=== PATIENT | female | born 1965 | race Caucasian/White ===

== ENCOUNTER → 2020-07-30 14:49 | Outpatient (BNVA) | payer BC, SELFPAY | PROVIDERS: Family Provider Family Medicine; Visit Provider Specialist | DX: G43.019 Migraine without aura, intractable, without status migrainosus (principal) | CPT/HCPCS: 99212 ==

== ENCOUNTER 2020-09-21 13:34 | Outpatient (CLI) | payer BC, SELFPAY ==
--- NOTE | 2020-09-21 13:40 | MM_ITS ---
WS: [id number] BILATERAL SCREENING DIGITAL MAMMOGRAM WITH CAD HISTORY: SCREENING COMPARISON: 08/09/2019 and 08/10/2018 Bilateral CC and MLO views submitted. Computer aided detection analyzed. Breast composition: There are scattered areas of fibroglandular density. No suspicious masses, microc alcifications or architectural distortion. MM/[place] [id number] IMPRESSION: BI-RADS: 1-Negative FOLLOW UP: 1 Year Follow-up
== END 2020-09-21 13:35 | disposition home or self-care (01) ==
LOC: RADSHAW 13:39
PROVIDERS: PCP Nurse Practitioner Family; Visit Provider Nurse Practitioner Family
DX: Z12.31 Encounter for screening mammogram for malignant neoplasm of breast (principal)
CPT/HCPCS: 77067

== ENCOUNTER 2020-12-14 19:09 | Emergency (ER) | payer OTHER, SELFPAY ==
--- NOTE | 2020-12-14 19:10 | ECG_ITS ---
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 Measurements Intervals [place] Rate: 73 P: 61 GA: 160 QRS: -32 QRSD: 96 T: 33 QT: 390 QTc: 430 Interpretive Statements SINUS RHYTHM WITH SINUS ARRHYTHMIA MARKED LEFT AXIS DEVIATION [QRS AXIS < -30] LOW QRS VOLTAGE IN PRECORDIAL LEADS [QRS DEFLECTION < 1.0 mV IN CHEST LEADS] POSSIBLE ANTERIOR MYOCARDIAL INFARCTION [30 ms Q WAVE IN V3/V4, OR R < 0.2 mV IN V4], PROBABLY OLD Compared to ECG 12/10/2018 17:20:37 Left-axis deviation now present Myocardial infarct finding still present Electronically Signed On 12-15-2020 19:19:53 SHOE STITCHER ODD by Qasim Yan M.D. [email or web address] Ltd[facility] Healthcare[facility].[email or web address]/NU/[id number] whiting
--- NOTE | 2020-12-14 19:10 | XRR_ITS ---
PROCEDURE INFORMATION: Exam: XR Chest, 1 View Exam date and time: 12/14/2020 7:35 PM Age: 55 years old Clinical indication: Chest pain; Additional info: Cp TECHNIQUE: Imaging protocol: XR of the chest Views: 1 view. COMPARISON: CR Chest 1 [place] [id number] 12/10/2018 2:55 PM FINDINGS: Lungs: Unremarkable. No consolidation. Pleural spaces: Unremarkable. No pleural effusion. No pneumothorax. Heart/Mediastinum: Unremarkable. No cardiomegaly. Bones/joints: Unremarkable. XR/XR chest 1V portable [id number] IMPRESSION: 1. No acute findings. 2. No change from prior.
[2020-12-14 19:18] VITALS: BP 144/84; PULSE 76; RESP 16; TEMP 36.8; O2SAT 96; BMI 50.8
[2020-12-14 21:17] VITALS: BP 124/78
== END 2020-12-14 21:14 | disposition left against medical advice (07) ==
PROVIDERS: PCP Nurse Practitioner Family
DX: Z53.21 Procedure and treatment not carried out due to patient leaving prior to being seen by health care provider (principal)
CPT/HCPCS: 71045; 93005; 99283

== ENCOUNTER → 2021-07-31 14:12 | Outpatient (BNVA) | payer OTHER, SELFPAY | PROVIDERS: PCP Nurse Practitioner Family; Visit Provider Specialist | DX: G43.019 Migraine without aura, intractable, without status migrainosus (principal) | CPT/HCPCS: 99212 ==

== ENCOUNTER 2021-12-11 00:56 | Emergency (ER) | payer OTHER, SELFPAY ==
[2021-12-11 01:01] VITALS: BP 147/82; PULSE 80; RESP 20; TEMP 36.7; O2SAT 94; BMI 48.2
[2021-12-11 04:10] LABS: Basophils % 0.1 %; Eosinophils # 0.2 10^3/uL (0.0-0.8); Eosinophils % 3.1 %; Hematocrit 39.8 % (37.0-47.0); Lymphocytes # 1.7 10^3/uL (0.8-4.8); Lymphocytes % 24.1 %; Mean Corpuscular HGB Conc 32.7 g/dL (30.0-36.0); Mean Corpuscular Hemoglobin 31.7 pg (28.0-34.0); Mean Corpuscular Volume 97.1 fl (81-99); Mean Platelet Volume 11.6 fL (7.4-10.4); Monocytes # 0.7 10^3/uL (0.2-0.9); Monocytes % 10.2 %; Neutrophils % 62.1 %; Nucleated Red Blood Cells % 0 %; Platelet Count 184 10^3/cmm (130-400); Red Cell Distribution Width 12.2 % (12.1-15.1); White Blood Count 7.1 10^3/uL (4.0-10.0)
[2021-12-11] MEDS: ondansetron 4 MG Tablet PO (04:18)
[2021-12-11 04:33] LABS: Alanine Aminotransferase 33 U/L (0-33); Albumin Level 4.1 g/dL (3.5-5.2); Alkaline Phosphatase 49 IU/L (35-105); Anion Gap 18.4 (5-19); Aspartate Amino Transferase 32 U/L (0-32); Blood Urea Nitrogen 13 mg/dL (6-20); Calcium 9.5 mg/dL (8.5-10.5); Carbon Dioxide 20 mmol/L (22-29); Chloride 107 mmol/L (98-107); Globulin 2.1 g/dL (1.3-4.6); Glomerular Filtration Rate 166.3 mL/min (90-130); Glucose 142 mg/dL (65-115); Lipase 14 U/L (13-60); Osmolality Calculated 297 mOsm/kg (285-295); Potassium 3.4 mmol/L (3.5-5.1); Sodium 142 mmol/L (136-145); Total Bilirubin 0.6 mg/dL (0.15-1.2); Total Protein 6.2 g/dL (6.6-8.7)
--- NOTE | 2021-12-11 06:22 | CT_ITS ---
WS: [id number] CT ABDOMEN AND PELVIS WITH CONTRAST HISTORY: LEFT lower quadrant pain, UTI nausea and vomiting. TECHNIQUE: Imaging performed of the abdomen and pelvis with IV contrast. Single phase imaging of the abdomen. Coronal and sagittal reformats are submitted. All CT scans at [facility] use at [address] one of these dose optimization techniques: automated exposure control; mA and/or kV adjustment per patient size (includes targeted exams where dose is matched to clinical indication); or iterative re construction. IV CONTRAST: Visipaque 320; 95 mL IV. Oral contrast: No DLP: 1875.21 mGy.cm COMPARISON: 04/25/2016 Lower thorax: At the lung bases there are peripheral bilateral opacifications which are probably due to patient's Covid 19 diagnosis. No mass. Mild enlargement of the heart. Small hiatal hernia. Liver/biliary system: Liver is moderately enlarged. Liver extends over length of at least 19.5 cm wit h low attenuation from hepatic steatosis. Normal bile ducts. Portal vein is patent. Gallbladder: Normal. No gallstones or wall thickening. No pericholecystic fluid. Pancreas: Mild atrophy of the pancreas. No mass or evidence for acute pancreatitis. Spleen: Normal size spleen. No mass or infarct. Adrenal glands: Normal. Right kidney: Normal. Left kidney: Normal. Aorta: Mild atherosclerosis with no aneurysm. Lymphadenopathy: None. Free fluid: None. GI tract: Nondistended stomach. No small bowel obstruction or enteritis. The appendix is normal and c ontains a small appendicolith. No evidence for appendicitis. Extensive diverticulosis throughout the colon. In the descending and sigmoid colon there is moderate to severe pericolonic inflammation with narrowing of the lumen. Several adjacent diverticula. No free air is identified. There is no abscess or adjacent free fluid. Segment of inflammation extends over a length of 9 cm. Abdominal wall: Fat-containing umbilical hernia. Pelvis: Nondistended urinary bladder. No free fluid or adenopathy. Bones: No osteoblastic or osteolytic bone disease. CT/CT abdomen pelvis w con* [id number] IMPRESSION: 1. Focal area of acute diverticulitis involving the distal descending and sigm oid colon. No abscess or free air. 2. Additional pancolonic diverticulosis. 3. Moderate hepatomegaly and hepatic steatosis. 4. Bilateral, mild lower lobe pneumonitis from Covid 19. 5. No appendicitis.
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
[2021-12-11 07:14] LABS: Add Urine Microscopic? YES; Bilirubin Urine 1+ (Negative); Blood Urine Trace (Negative); Glucose Urine UA Trace (Normal); Ketones Urine 1+ (Negative); Leukocyte Esterase Urine Trace (Negative); Nitrate Urine Negative (Negative); Protein Urine 1+ (Negative); Urine Appearance Cloudy (CLEAR); Urine Color Yellow (Yellow); Urobilinogen Urine 4 mg/dL (Negative); pH Urine 5 (5-7)
[2021-12-11 07:16] LABS: RBC Urine 0-4 /hpf (0-2)
[2021-12-11 07:17] LABS: Add Urine Culture? No; Amorphous Sediment Urine 3+ /hpf; Bacteria Urine 1+ /hpf; Mucus Urine TRACE /hpf; Squamous Epithelial Cell Urine 15-25 /hpf (0-5)
[2021-12-11] MEDS: diphenhydrAMINE 50 mg/mL SDV 1mL IVP (08:03)
[2021-12-11] MEDS: hydrocortisone 100 mg/2 mL SDV IVP (08:03)
[2021-12-11 08:10] VITALS: BP 141/87; PULSE 75; RESP 18; O2SAT 91
--- NOTE | 2021-12-11 08:11 | PC.NURSE ---
IV started, meds administered, VS updated, pt to CT at this time, R-leg support provided with rolled towel as requested by patient. No other immediate needs identified, will continue to monitor.
[2021-12-11] MEDS: iodixanol 320 mg/mL 100mL Btl IV (08:16)
[2021-12-11 09:30] VITALS: BP 157/88; PULSE 78; RESP 18; O2SAT 92
== END 2021-12-11 09:29 | disposition home or self-care (01) ==
PROVIDERS: Physician Assistant; Emergency Provider Family Medicine; PCP Nurse Practitioner Family
DX: K57.92 Diverticulitis of intestine, part unspecified, without perforation or abscess without bleeding (principal); Z79.82 Long term (current) use of aspirin
CPT/HCPCS: 74177; 80053; 81001; 83690; 85025; 96374; 96375; 99283; J1200; J1720; Q0162; Q9967

== ENCOUNTER 2022-02-21 07:39 | Day surgery (SDC) | payer OTHER, SELFPAY ==
[2022-02-20 13:39] VITALS: BMI 48.8
[2022-02-21 08:29] VITALS: BP 146/93; PULSE 68; RESP 17; TEMP 36.6; O2SAT 96
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
[2022-02-21] MEDS: sodium chloride 0.9% 1,000 ML 30 ML IV (08:42)
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
[2022-02-21 09:39] VITALS: BP 119/69; PULSE 74; RESP 16; TEMP 36.1; O2SAT 95
[2022-02-21 09:50] VITALS: BP 125/81; PULSE 71; RESP 18; O2SAT 97
--- NOTE | 2022-02-21 13:05 | ANE.PACU2 ---
Inpatient post-anesthesia follow up: Airway intact: Yes Vital signs: Temperature 97.0 F Pulse Rate 71 Respiratory Rate 18 Blood Pressure 125/81 Pulse Oximetry 97 Oxygen Delivery Me thod Room Air Oxygen Flow Rate Fraction of Inspir ed Oxygen Hydration adequate: Yes Nausea and vomiting: No Pain level: 1 Mental status: Baseline
== END 2022-02-21 10:05 | disposition home or self-care (01) ==
PROVIDERS: PCP Nurse Practitioner Family; Visit Provider Surgery
PROC: 0DJD8ZZ Inspection of Lower Intestinal Tract, Via Natural or Artificial Opening Endoscopic (ICD-10-PCS; CPT 45378; principal; 2022-02-21 09:30)
DX: K57.32 Diverticulitis of large intestine without perforation or abscess without bleeding (principal); K64.8 Other hemorrhoids; I10 Essential (primary) hypertension; K21.9 Gastro-esophageal reflux disease without esophagitis; E66.01 Morbid (severe) obesity due to excess calories; Z68.42 Body mass index [BMI] 45.0-49.9, adult; Z79.82 Long term (current) use of aspirin
CPT/HCPCS: 45378; J2704; J7030

== ENCOUNTER 2022-08-26 16:40 | Emergency (ER) | payer OTHER, SELFPAY ==
[2022-08-26 17:33] VITALS: BP 148/85; PULSE 61; RESP 18; TEMP 36.8; O2SAT 95; BMI 48.8
--- NOTE | 2022-08-26 17:47 | W.ED.EXTPRO ---
HPI - Extremity Problem General: Chief complaint: Extremity Injury, Upper Stated complaint: Right thumb lac Time Seen by Provider: 08/26/22 17:47 History of Present Illness: Patient is in today for a laceration to her right thumb. Patient reports that approximately 9:00 this morning she was using a slicer and sliced her right side thumb. She reports that she was not going to come in; however, she takes aspirin twice per day and the thumb just is not stopping bleeding. She does not think she is up-to-date on her tetanus vaccination. Associated symptoms: Deny fever(s) Review of Systems Const: Denies: fever(s) or chills Skin/Breast: Reports: other (Laceration right side thumb) [facility] ED PFSH: Medical History Common migraine with intractable migraine Diverticulitis large intestine GERD (gastroesophageal reflux disease) Hypertension Surgical History H/O section History of amputation Traumatic History of colonoscopy last 5 yrs History of heart surgery History of hysterectomy History of tonsillectomy Status post colonoscopy (02/21/22) Family History Other CAD (coronary artery disease) Cancer Diabetes Hypertension Social History Smoking and tobacco status: never smoked History of recent travel: No Physical Exam Const: COMMON NORMALS: no acute distress, patient oriented x3 and alert Resp: COMMON NORMALS: normal respiratory effort and No use of accessory muscles Extremity: NARRATIVE EXTREMITY EXAM: Right thumb to the medial side of the nailbed there is an area of skin avulsion with continuous capillary ooze appreciated. Medial to that there appears to be a more superficial laceration with crusted dried blood noted. The finger is pink and warm. Patient has full flexion extension. Patient has decreased sensation to the distal tip of the finger centrally. No other sensation changes appreciated. Laceration and skin avulsion do not appear to involve deep tissues or structures. After irrigating the wound it was noticed that there was the avulsion there was not a laceration next to that it was actually the flap of skin for the avulsion. This flap was reapplied and tacked down with 3 sutures 4 oh nonabsorbable. Bleeding is stopped patient tolerated well with no immediate complications appreciated OTHER: Patient has history of left leg amputation Neuro: COMMON NORMALS: patient oriented x3 SENSORIUM/ORIENTATION: Yes alert Procedures Laceration Right thumb: Site: hand (Right thumb) Side (If applicable): right Size (cm): 1 Description: flap and other (Skin avulsion) Depth: simple, single layer Local Anesthetic: lidocaine 1% Amount of anesthesia used (mL): 2.5 Pre-repair: wound explored, irrigated extensively and deep structures intact Skin layer closed with: other (4-0 nonabsorbable) Number of sutures: 3 Technique: simple, interrupted Course Vital Signs: Vital signs: Vital Signs Temperature 98.3 F 08/26/22 17:33 Pulse Rate 61 08/26/22 17:33 Respiratory Rate 18 08/26/22 17:33 Blood Pressure 148/85 08/26/22 17:33 Pulse Oximetry 95 08/26/22 17:33 Oxygen Delivery Me thod 08/26/22 17:33 MDM - Extremity (Nontraumatic) Medical Decision Making Skin avulsion and skin laceration. Patient is on aspirin twice daily. Digital block to the finger done with lidocaine 1%. Wound is cleaned. Explored the wound. There is not a skin laceration near the avulsion. After cleaned it is determined that the flap of skin to the avulsion was sitting near it and crusted in dried blood. Skin flapped back over and tacked down with 3 sutures 4-0 nonabsorbable. Bleeding stopped. Pt tolerated Update patient's tetanus immunization today. Follow-up with primary care provider as needed. Return to the ER for new or worsening symptoms. Discharge Plan Discharge Patient Disposition: Home Clinical Impression: Avulsion of skin Condition: Stable Prescriptions: No Action multivitamin Tablet 1 tab PO DAILY fenofibrate nanocrystallized 145 mg tablet 145 mg PO DAILY aspirin [Adult Aspirin Regimen] 81 mg tablet,delayed release (DR/EC) 81 mg PO BID biotin 1 mg capsule 1 mg PO DAILY garlic 1,000 mg capsule 1,000 mg PO DAILY Stool Softener 50 mg capsule 100 mg PO BEDTIME lutein 20 mg capsule 20 mg PO DAILY Rx Instructions: give with meal/snack omeprazole 20 mg capsule,delayed release(DR/EC) 20 mg PO DAILY lisinopril 20 mg tablet 20 mg PO BID sennosides 8.6 mg Tablet 17.2 mg PO DAILY cod liver oil Capsule 1 cap PO BEDTIME Vitamin C 1,000 mg Tablet Extended Release 1,000 mg PO DAILY pyridoxine (vitamin B6) 200 mg Tablet 200 mg PO DAILY sgmevpx-opnfnlieu-esnx Tablet 1 tab PO DAILY elderberry fruit 200 mg Capsule 100 mg PO DAILY vit A and D3 in cod liver oil 4,000 unit-400 unit/5 mL Liquid 3,000 ml PO DAILY Probiotic 20 billion cell Capsule 20,000 mmu cells PO DAILY Rx Instructions: administer with a meal topiramate 25 mg tablet 25 mg PO DAILY Discharge Orders: Discharge ED (Routine); Ordered 08/26/22 Ordered By: Fe Hahn Referrals: Donna Bailey FNP [Primary Care Provider] - Discharge Diet: Usual diet Discharge Activity: Resume usual activity Patient Instructions: Laceration, Care For Your Stitches (ED) Activity Restrictions/Additional Instructions: Keep sutures clean and dry. Follow-up to have sutures removed in 5 to 7 days either in the ER or the primary care provider's office. Monitor closely for signs of infection. Your tetanus vaccination was updated today. Return to the ER for any new or worsening symptoms. Coding Level of Care Code ED Audiology Director for [facility] Exam Expanded Problem Focused
[2022-08-26] MEDS: lidocaine 1% INJ 20 mL MDV (mL) 3 ML INJECTION (19:16)
[2022-08-26] MEDS: tetanus-dipt-pertussis 0.5 mL SDV IM (19:57)
== END 2022-08-26 20:15 | disposition home or self-care (01) ==
PROVIDERS: Emergency Provider Nurse Practitioner Family; PCP Nurse Practitioner Family
DX: S61.011A Laceration without foreign body of right thumb without damage to nail, initial encounter (principal); W26.0XXA Contact with knife, initial encounter; I10 Essential (primary) hypertension; Z79.82 Long term (current) use of aspirin; Z23 Encounter for immunization
CPT/HCPCS: 90471; 90715; 99283

== ENCOUNTER 2022-11-04 14:03 | Outpatient (CLI) | payer OTHER, SELFPAY ==
--- NOTE | 2022-11-04 15:14 | XR_ITS ---
WS: [id number] K[facility], AP view, 11/04/2022 Clinical Data: ELEVATED LIVER ENZYMES, DECREASED URINATION Comparison: None. Findings: No abnormal intraabdominal masses or calcifications are seen. There is no dilatated small bowel or ev idence of obstruction. There is a minimal amount of fecal material in the colon. XR/XR KUB [id number] Impression: Negative KUB.
== END 2022-11-04 14:04 | disposition home or self-care (01) ==
LOC: RAD 14:09
PROVIDERS: PCP Nurse Practitioner Family; Visit Provider Nurse Practitioner Family
DX: R74.8 Abnormal levels of other serum enzymes (principal); R34 Anuria and oliguria; M79.10 Myalgia, unspecified site
CPT/HCPCS: 74018

== ENCOUNTER 2023-01-29 20:29 | Emergency (ER) | payer OTHER, SELFPAY ==
[2023-01-29 20:33] VITALS: BP 161/84; PULSE 63; RESP 18; TEMP 36.7; O2SAT 96; BMI 46.8
--- NOTE | 2023-01-29 21:20 | XRR_ITS ---
PROCEDURE INFORMATION: Exam: XR Left Finger(s) Exam date and time: 01/29/2023 9:26 PM Age: 57 years old Clinical indication: Pain; Finger(s); Left; Additional info: Chainsaw laceration TECHNIQUE: Imaging protocol: Radiologic exam of the left fingers. Views: Minimum 2 views. COMPARISON: No relevant prior studies available. FINDINGS: Bones/joints: Osseous structures are intact. Negative for fracture. Soft tissues: No radiopaque foreign body. XR/XR finger LT min 2V [id number] IMPRESSION: Negative for fracture. No radiopaque foreign body.
[2023-01-29] MEDS: HYDROcodone-acetaminophen 5-325 mg Tablet 1 TAB PO (21:39)
[2023-01-29 22:38] VITALS: BP 157/79; PULSE 65; RESP 16; O2SAT 98
--- NOTE | 2023-01-29 23:25 | W.ED.WOUNDLC ---
HPI - Wound/Laceration General: Chief Complaint: Wound/Laceration Stated Complaint: cut fingers on left hand with chainsaw Time Seen by Provider: 01/29/23 20:48 History of Present Illness: Patient is in today for chainsaw laceration. She was working with a battery-operated chainsaw that ended up chewing through its sheath and getting her second and third finger on her left hand palmar side. Patient does still have flexion extension of both fingers. She cannot recall when her last tetanus was. Associated symptoms: Denies chills or fever(s) Review of Systems Const: Denies: fever(s) or chills Card: Denies: chest pain or palpitations Resp: Denies: dyspnea, productive cough or non-productive cough Musc: Reports: other (Laceration left hand to finger with chainsaw) Skin/Breast: Reports: other (Second and third finger left hand palmar side laceration by a chainsaw) [facility] ED PFSH: Medical History Common migraine with intractable migraine Diverticulitis large intestine GERD (gastroesophageal reflux disease) Hypertension Surgical History H/O section History of amputation Traumatic History of colonoscopy last 5 yrs History of heart surgery History of hysterectomy History of tonsillectomy Status post colonoscopy (02/21/22) Family History Other CAD (coronary artery disease) Cancer Diabetes Hypertension Social History Smoking and tobacco status: never smoked Physical Exam Const: COMMON NORMALS: no acute distress, patient oriented x3 and alert OTHER: Patient is morbidly obese, wheelchair-bound with left leg amputation from previous traumatic injury Resp: COMMON NORMALS: normal respiratory effort and No use of accessory muscles Extremity: NARRATIVE EXTREMITY EXAM: Flexion extension within normal limits to second third finger on left hand where the laceration is. Two-point discrimination within normal limits. Color sensation movement within normal limits Neuro: COMMON NORMALS: patient oriented x3 SENSORIUM/ORIENTATION: Yes alert Skin: NARRATIVE SKIN EXAM: For lacerations palmar surface left index finger. There are 2 parallel jagged lacerations running horizontal distal to that on the tip of the finger there are 2 other parallel clean cut lacerations. Third finger there is 1 linear laceration palmar side. Moderate bleeding noted. Patient takes a baby aspirin twice daily. Total of 23 nylon 4-0 nonabsorbable sutures used. Procedures Laceration Left index finger proximal: Site: upper extremity Side (If applicable): left Size (cm): 2 Description: irregular Depth: simple, single layer Local Anesthetic: lidocaine 1% Amount of anesthesia used (mL): 3 Pre-repair: wound explored and irrigated extensively Skin layer closed with: nylon Size (cm): 4-0 Number of sutures: 4 Technique: simple, interrupted Left index finger #2: Site: upper extremity Side (If applicable): left Size (cm): 3 Description: irregular Depth: simple, single layer Local Anesthetic: lidocaine 1% (Digital block total of 3 cc lidocaine used) Skin layer closed with: nylon Size (cm): 4-0 Number of sutures: 8 Technique: simple, interrupted Index finger tip: Site: upper extremity Side (If applicable): left Size (cm): 1.5 Description: linear Depth: simple, single layer Pre-repair: wound explored and irrigated extensively Skin layer closed with: nylon Size (cm): 4-0 Number of sutures: 4 Technique: simple, interrupted Distal fingertip: Site: upper extremity Side (If applicable): left Size (cm): 1.5 Depth: simple, single layer Pre-repair: wound explored and irrigated extensively Size (cm): 4-0 Number of sutures: 4 Technique: simple, interrupted Third finger left hand: Site: upper extremity Side (If applicable): left Size (cm): 1 Description: linear Depth: simple, single layer Local Anesthetic: lidocaine 1% Amount of anesthesia used (mL): 3 Pre-repair: wound explored and irrigated extensively Skin layer closed with: nylon Size (cm): 4-0 Number of sutures: 3 Technique: simple, interrupted Course Vital Signs: Vital signs: Vital Signs Temperature 98.0 F 01/29/23 20:33 Pulse Rate 63 01/29/23 20:33 Respiratory Rate 18 01/29/23 20:33 Blood Pressure 161/84 01/29/23 20:33 Pulse Oximetry 96 01/29/23 20:33 Oxygen Delivery Me thod 01/29/23 20:33 MDM - Wound/Laceration Medical Decision Making Patient is in today for a laceration by a chainsaw to the second and third fingers of her left hand. A dose of hydrocodone was given for pain and digital block was done to the second and third digits. Wounds were cleaned and irrigated extensively. X-ray did not show any foreign body or fractures. I discussed wound closure options with the patient. We discussed potential risk and benefits of suture repair. We discussed her risk for scarring. We discussed the need for wound closure to help control bleeding. Patient understands that healing may be decreased given the jagged nature of the wound. Patient wishes to proceed with suture repair. Patient tolerated the procedure well. Bleeding is controlled once sutures are placed. Advised patient of suture care at home and to follow-up in 5 to 7 days for suture removal. Start patient on prophylactic antibiotic. Tetanus was updated on patient last visit in August 2022. I consulted with Dr. Stewart for outpatient pain control for the patient. A prescription for hydrocodone 5 mg / 325 mg 1 p.o. every 6 hours as needed for pain #8 no refills was given. Advised patient to follow-up with primary care provider as needed. Return to the ER for any new or worsening symptoms. Lab Data Radiology Impressions Finger X-Ray 01/29/23 21:20 IMPRESSION: Negative for fracture. No radiopaque foreign body. Discharge Plan Discharge Patient Disposition: Home Clinical Impression: Laceration Condition: Stable Prescriptions: New cephalexin 500 mg capsule 500 mg PO BID 7 Days Qty: 14 0RF No Action multivitamin Tablet 1 tab PO DAILY fenofibrate nanocrystallized 145 mg tablet 145 mg PO DAILY aspirin [Adult Aspirin Regimen] 81 mg tablet,delayed release (DR/EC) 81 mg PO BID biotin 1 mg capsule 1 mg PO DAILY garlic 1,000 mg capsule 1,000 mg PO DAILY Stool Softener 50 mg capsule 100 mg PO BEDTIME lutein 20 mg capsule 20 mg PO DAILY Rx Instructions: give with meal/snack omeprazole 20 mg capsule,delayed release(DR/EC) 20 mg PO DAILY lisinopril 20 mg tablet 20 mg PO BID topiramate 25 mg tablet See Rx Instructions .ROUTE .COMPLEX Qty: 180 3RF Dose Instruction: TAKE 1 TABLET BY MOUTH TWICE A DAY Rx Instructions: TAKE 1 TABLET BY MOUTH TWICE A DAY sennosides 8.6 mg Tablet 17.2 mg PO DAILY cod liver oil Capsule 1 cap PO BEDTIME Vitamin C 1,000 mg Tablet Extended Release 1,000 mg PO DAILY pyridoxine (vitamin B6) 200 mg Tablet 200 mg PO DAILY hayujlo-ogpsdbvva-ndzc Tablet 1 tab PO DAILY elderberry fruit 200 mg Capsule 100 mg PO DAILY vit A and D3 in cod liver oil 4,000 unit-400 unit/5 mL Liquid 3,000 ml PO DAILY Probiotic 20 billion cell Capsule 20,000 mmu cells PO DAILY Rx Instructions: administer with a meal Discharge Orders: Discharge ED (Routine); Ordered 01/29/23 Ordered By: Fe Hahn Referrals: Donna Bailey FNP [Primary Care Provider] - Discharge Diet: Usual diet Discharge Activity: Limit activity as instructed Patient Instructions: Care For Your Stitches (ED) Activity Restrictions/Additional Instructions: Keep the wound clean and dry. Take antibiotics as directed until they are all gone. Monitor closely for any signs of infection. Your tetanus was updated at your last visit in August 2022. Return in 5 to 7 days for removal of sutures. Return sooner as needed for new or worsening symptoms. Coding Level of Care Code ED Mixer Lever Operator for [facility] Manzanares
== END 2023-01-30 00:18 | disposition home or self-care (01) ==
PROVIDERS: Emergency Provider Nurse Practitioner Family; PCP Nurse Practitioner Family
DX: S61.211A Laceration without foreign body of left index finger without damage to nail, initial encounter (principal); S61.213A Laceration without foreign body of left middle finger without damage to nail, initial encounter; I10 Essential (primary) hypertension; W29.3XXA Contact with powered garden and outdoor hand tools and machinery, initial encounter; Z79.82 Long term (current) use of aspirin
CPT/HCPCS: 12004; 73140; 99283

== ENCOUNTER 2023-02-02 14:56 | Emergency (ER) | payer OTHER, SELFPAY ==
[2023-02-02 15:10] VITALS: BP 123/92; PULSE 62; RESP 16; TEMP 36.6; O2SAT 96; BMI 48.8
--- NOTE | 2023-02-02 18:23 | ED_ITS ---
HPI - Wound/Laceration General: Chief Complaint: Wound/Laceration Stated Complaint: left hand finger infection Time Seen by Provider: 02/02/23 15:19 Source: patient Mode of arrival: wheelchair Limitations: no limitations History of Present Illness: Patient presents emergency department today for evaluation treatment of concerns for wound infection. Patient was seen here in the emergency department on 01/29 after receiving multiple lacerations to her left index and left third fingers on the palmar aspect. Patient had 20+ sutures placed in various lacerations on these sites. She was put on prophylactic Keflex but, is concerned as she has continued to have swelling, redness, and is concerned of moisture from the wounds. From what I understand, patient has only changed her bandaging a couple of times and reports using triple antibiotic ointment over the wounds. Review of Systems General: Reports: 10 or more systems reviewed and unremarkable except in HPI and below Musc: Reports: limited range of motion (Swelling of fingers, tenderness) PFSH ED PFSH: Medical History Common migraine with intractable migraine Diverticulitis large intestine GERD (gastroesophageal reflux disease) Hypertension Surgical History H/O section History of amputation Traumatic History of colonoscopy last 5 yrs History of heart surgery History of hysterectomy History of tonsillectomy Status post colonoscopy (02/21/22) Family History Other CAD (coronary artery disease) Cancer Diabetes Hypertension Social History Smoking and tobacco status: never smoked Physical Exam Const: COMMON NORMALS: no acute distress, patient oriented x3 and alert HENMT: COMMON NORMALS: normocephalic, atraumatic and hearing grossly normal bilaterally HEAD & SCALP: normocephalic and atraumatic Eye: COMMON NORMALS: Equal, round and reactive pupils present, EOMs intact bilaterally and conjunctivae normal CONJUNCTIVA: Yes conjunctivae normal PUPIL: Yes Equal, round and reactive pupils present Neck/C-Spine: COMMON NORMALS: full ROM and no JVD Lymph: LYMPHATIC: no lymphadenopathy noted Resp: COMMON NORMALS: normal respiratory effort, No retractions and No use of accessory muscles Cardio: COMMON NORMALS: no JVD and regular rate RATE: regular rate Extremity: NARRATIVE EXTREMITY EXAM: Patient's left index finger has several different wounds noted on the palmar aspect with sutures present. Patient's finger does appear somewhat erythematous and swollen. There is quite a bit of accumulation over the wounds and sutures including scabbing. But, I do agree that there is an area over the PIP joint that looks macerated, wet, and white/discolored. Neuro: COMMON NORMALS: patient oriented x3 SENSORIUM/ORIENTATION: Yes alert Psych: COMMON NORMALS: mental status grossly normal, Normal thought process present, cooperative and normal affect THOUGHT PROCESS: Normal thought process present Skin: COMMON NORMALS: no rashes or lesions noted and turgor normal GENERAL SKIN EXAM: no rashes or lesions noted and turgor normal Course Vital Signs: Vital signs: Vital Signs Temperature 97.8 F 02/02/23 15:10 Pulse Rate 62 02/02/23 15:10 Respiratory Rate 16 02/02/23 15:10 Blood Pressure 123/92 02/02/23 15:10 Pulse Oximetry 96 02/02/23 15:10 MDM - Wound/Laceration Medical Decision Making Patient presents to the ER today for evaluation treatment of concerns for wound infection. After reviewing the patient's chart, it does appear that the patient's wounds have remained swollen and erythematous after the repair. Patient states she has been taking her antibiotics as prescribed but, I am not sure about wound care. She has been placing triple antibiotic ointment over the wounds and, I am concerned of some maceration which has occurred due to the moisture applied topically. However, patient's wounds were cleaned here in the ER and I did release some of the sutures-approximately 12 as it does appear the wounds are swollen and, in my opinion, do require some removal of sutures to allow for some draining of underlying purulent material. Patient's wounds were once again covered and bandaged. I am switching her over to doxycycline and, gave her some different wound care instructions including twice a day wound cleaning and thorough drying without application of any dryw-isd-vhsabec topical ointments or creams. She needs to have the rest of her sutures removed in approximately 2 days but, if she continues to have issues with swelling or concerns of infection without improvement in her condition noticeable during the 48 hours she needs to be seen and reevaluated sooner. Differential Diagnosis Likely laceration, abscess (Cellulitis, wound dehiscence), abrasion and avulsion of skin Discharge Plan Discharge Patient Disposition: Home Clinical Impression: Wound infection Condition: Stable Prescriptions: New doxycycline hyclate 100 mg tablet 100 mg PO BID 10 Days Qty: 20 0RF No Action multivitamin Tablet 1 tab PO DAILY fenofibrate nanocrystallized 145 mg tablet 145 mg PO DAILY aspirin [Adult Aspirin Regimen] 81 mg tablet,delayed release (DR/EC) 81 mg PO BID biotin 1 mg capsule 1 mg PO DAILY garlic 1,000 mg capsule 1,000 mg PO DAILY Stool Softener 50 mg capsule 100 mg PO BEDTIME lutein 20 mg capsule 20 mg PO DAILY Rx Instructions: give with meal/snack omeprazole 20 mg capsule,delayed release(DR/EC) 20 mg PO DAILY lisinopril 20 mg tablet 20 mg PO BID topiramate 25 mg tablet See Rx Instructions .ROUTE .COMPLEX Qty: 180 3RF Dose Instruction: TAKE 1 TABLET BY MOUTH TWICE A DAY Rx Instructions: TAKE 1 TABLET BY MOUTH TWICE A DAY sennosides 8.6 mg Tablet 17.2 mg PO DAILY cod liver oil Capsule 1 cap PO BEDTIME Vitamin C 1,000 mg Tablet Extended Release 1,000 mg PO DAILY pyridoxine (vitamin B6) 200 mg Tablet 200 mg PO DAILY ypnoedi-nlwiucwwx-uowv Tablet 1 tab PO DAILY elderberry fruit 200 mg Capsule 100 mg PO DAILY vit A and D3 in cod liver oil 4,000 unit-400 unit/5 mL Liquid 3,000 ml PO DAILY Probiotic 20 billion cell Capsule 20,000 mmu cells PO DAILY Rx Instructions: administer with a meal cephalexin 500 mg capsule 500 mg PO BID 7 Days Qty: 14 0RF Discharge Orders: Discharge ED (Routine); Ordered 02/02/23 Ordered By: Luh Gibbs Referrals: Donna Bailey, GENETIC COUNSELLOR [Primary Care Provider] - Discharge Diet: Usual diet Discharge Activity: Increase activity as tolerated Patient Instructions: Acute Wound Care (ED) Activity Restrictions/Additional Instructions: After examining your wound, I do agree that I do not think it is healing as was to be expected. While you are on a good antibiotic for skin infections, I am going to switch you over to something with a broader coverage starting tonight. I removed some of the sutures to alleviate the pressure in the wounds. However, your other sutures need to be removed in approximately 48 hours. I would like you to wash your wound twice a day with warm water and a mild soap. You may soak it for a few minutes but, avoid getting the finger submerged long enough to cause any type of skin wrinkling after that, dry the finger completely and apply a dry bandage to the wound. At this time, would like to avoid putting anything topically on it to prevent any maceration of the wound edges and allow it to start to dry out. Continue to closely monitor the wound as you have been. If you have any acute concerns during this phase of treatment we do recommend you be seen and reevaluated again. Coding Level of Care Code ED [employer] Electrical Designer for [facility] Manzanares
--- NOTE | 2023-02-05 16:50 | PC.NURSE ---
AFTER BEING EXAMINED BY PROVIDER AWA HERNÁNDEZ TO REMOVE 10 STITCHES ON LEFT 2ND AND 3RD FINGERS REMOVED.
--- NOTE | 2023-02-06 09:24 | DCPLANNER ---
Addendum entered by Farrah Manzo 02/27/23 10:16: Patient had a follow up appointment scheduled with ortho - patient did attend appointment. Addendum entered by Farrah Manzo 02/10/23 09:51: business project manager received the following message from the ortho clinic regarding follow up appointment: Attempted to contact patient -- I was unable to get ahold of her and I was unable to leave a v/m. I will be mailing her a letter, we are trying to get her to come in Thursday (02-10-2023) with our COMMUNITY PLANNER Rodrigue (under Mohamud). Original Note: business project manager had message to schedule a follow up appointment for patient with ortho. business project manager sent patients information to the front office staff at ortho. Patients information will be printed and reviewed. Clinic will call patient with appointment information.
== END 2023-02-02 17:34 | disposition home or self-care (01) ==
PROVIDERS: Emergency Provider Physician Assistant; PCP Nurse Practitioner Family
DX: T81.41XA Infection following a procedure, superficial incisional surgical site, initial encounter (principal); Y84.8 Other medical procedures as the cause of abnormal reaction of the patient, or of later complication, without mention of misadventure at the time of the procedure; I10 Essential (primary) hypertension
CPT/HCPCS: 99283

== ENCOUNTER 2024-02-05 15:44 | Outpatient (CLI) | payer OTHER, SELFPAY ==
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
== END 2024-02-05 15:45 | disposition home or self-care (01) ==
PROVIDERS: PCP Nurse Practitioner Family; Visit Provider Nurse Practitioner Family
DX: M47.812 Spondylosis without myelopathy or radiculopathy, cervical region (principal)
CPT/HCPCS: 72052

== ENCOUNTER → 2024-03-03 15:36 | Outpatient (BNVA) | payer OTHER, SELFPAY | PROVIDERS: PCP Nurse Practitioner Family; Referring Provider Nurse Practitioner Family; Visit Provider Orthopaedic Surgery | DX: M54.2 Cervicalgia (principal) | CPT/HCPCS: 72050 ==

== ENCOUNTER 2024-08-22 06:41 | Emergency (ER) | payer OTHER, SELFPAY ==
[2024-08-22 06:54] VITALS: BP 167/88; PULSE 70; RESP 18; TEMP 37.1; O2SAT 97; BMI 47.2
--- NOTE | 2024-08-22 07:17 | W.ED.ABDPA2 ---
HPI - Abdominal Pain General: Chief Complaint: Abdominal Pain Stated Complaint: Diverticulitis Time Seen by Provider: 08/22/24 06:43 History of Present Illness: 59-year-old female presents to the emergency room with left lower quad abdominal pain that began 4 days ago. She has not had any hematochezia or melena. She has some pelvic discomfort just prior to urinating but no pain with urination itself. She did not notice any hematuria. She has had problems with diverticulitis in the past states this feels similar to that. She been nauseous without vomiting. Associated Symptoms: Denies chills, dysuria and fever(s) Related Data Home Medications Medication Instructions Recorded Confirmed aspirin 81 mg tablet,delayed 81 mg PO BID 07/30/20 08/22/24 release (Adult Aspirin Regimen) biotin 1 mg capsule 1 mg PO DAILY 07/30/20 08/22/24 docusate sodium 50 mg capsule 100 mg PO BEDTIME 07/30/20 08/22/24 (Stool Softener) fenofibrate nanocrystallized 145 145 mg PO DAILY 07/30/20 08/22/24 mg tablet lutein 20 mg capsule 20 mg PO DAILY 07/30/20 08/22/24 multivitamin 1 tab PO DAILY 07/30/20 08/22/24 omeprazole 20 mg capsule,delayed 20 mg PO DAILY 07/30/20 08/22/24 release lisinopril 20 mg tablet 20 mg PO BID 01/03/22 08/22/24 ascorbic acid (vitamin C) 1,000 mg 1,000 mg PO DAILY 02/20/22 08/22/24 tablet,extended release (Vitamin C ER) bibiikk-wcghupufu-dqib tablet 1 tab PO DAILY 02/20/22 08/22/24 cod liver oil 1 cap PO BEDTIME 02/20/22 08/22/24 lactobacillus comb no.10 20 20,000 mmu cells PO DAILY 02/20/22 08/22/24 billion cell capsule (Probiotic) pyridoxine (vitamin B6) 200 mg 200 mg PO DAILY 02/20/22 08/22/24 tablet sennosides 8.6 mg tablet 17.2 mg PO DAILY 02/20/22 08/22/24 vitamins A and D3, cod liver oil 3,000 ml PO DAILY 02/20/22 08/22/24 4,000 unit-400 unit/5 mL oral liquid Previous Rx's Medication Instructions Recorded amoxicillin 875 mg-potassium 1 tab PO BID #14 tabs 08/22/24 clavulanate 125 mg tablet Allergies Allergy/AdvReac Type Severity Reaction Status Date / Time ciprofloxacin [From Cipro] Allergy Severe hives Verified 03/03/24 16:39 Iodinated Contrast Media Allergy Unknown Verified 03/03/24 16:39 Sulfa (Sulfonamide Allergy Unknown Verified 03/03/24 16:39 Antibiotics) Review of Systems Const: Denies: fever(s) or chills Card: Denies: chest pain Resp: Denies: dyspnea GI: Denies: abdominal pain : Denies: dysuria, urinary frequency or urinary urgency Musc: Denies: neck pain or back pain Skin/Breast: Denies: rash PFSH ED PFSH: Medical History Diverticulitis large intestine Hypertension GERD (gastroesophageal reflux disease) Common migraine with intractable migraine Surgical History Status post colonoscopy (02/21/22) History of colonoscopy last 5 yrs History of heart surgery H/O section History of hysterectomy History of amputation Traumatic History of tonsillectomy Family History Other CAD (coronary artery disease) Cancer Diabetes Hypertension Social History Smoking and tobacco/nicotine status: never used tobacco/nicotine Physical Exam Const: GENERAL APPEARANCE: cooperative ORIENTATION/CONSCIOUSNESS: Yes awake, Yes oriented to person, Yes oriented to place and Yes oriented to time HENMT: COMMON NORMALS: normocephalic, atraumatic and hearing grossly normal bilaterally HEAD & SCALP: normocephalic and atraumatic Resp: COMMON NORMALS: normal respiratory effort, No retractions, No use of accessory muscles and clear to auscultation bilaterally AUSCULTATION: clear to auscultation bilaterally Cardio: COMMON NORMALS: regular rate, regular rhythm and No murmurs present (Cardio) RATE: regular rate RHYTHM: regular rhythm GI: COMMON NORMALS: No hepatosplenomegaly present AUSCULTATION: Yes normoactive bowel sounds PALPATION: Yes Tenderness to palpation present (GI) Details: LLQ, No Guarding due to palpation present (GI) and Yes No hepatosplenomegaly present OTHER: Large pannus reaching below the level of the pubic bone Extremity: COMMON NORMALS: normal to inspection, capillary refill normal, no clubbing, cyanosis or edema, no calf tenderness and no pedal edema Neuro: SENSORIUM/ORIENTATION: Yes oriented to person, Yes oriented to place and Yes oriented to time Skin: COMMON NORMALS: no rashes or lesions noted GENERAL SKIN EXAM: no rashes or lesions noted Course Vital Signs: Vital signs: Vital Signs Temperature 98.8 F 08/22/24 06:54 Pulse Rate 72 08/22/24 10:06 Respiratory Rate 16 08/22/24 10:06 Blood Pressure 151/78 08/22/24 10:06 Pulse Oximetry 98 08/22/24 10:06 Oxygen Delivery Me thod Room Air 08/22/24 06:54 MDM - Abdominal Pain Medical Decision Making During exam patient asked why we had not palpated on her lower pannus. Discussed with her that the lower portion of her pannus given her body habitus would not really transmit any force it into the left lower quadrant that would be particularly helpful. I did palpate all 4 quadrants of her abdomen, patient did have pain with palpation in the left lower quadrant. The area patient was indicating was the lower left pannus not the actual left lower quadrant. CT shows short segment of diverticulitis. Incidental finding of cholelithiasis possible choledocholithiasis. She is completely asymptomatic as far as biliary colic goes the liver functions are normal ultrasound was done the patient was discharged with plan to make referral for both the diverticulitis and the cholelithiasis to surgery. There is no dilation of the common bile duct on the ultrasound ultrasound was not able to confirm presence of choledocholithiasis given at this point she is otherwise asymptomatic and has no liver function changes this can be pursued on an outpatient basis. Will have her see general surgery because of her reports of recurrent diverticulitis it suggested slight narrowing in that region of the sigmoid. Additionally they can complete the workup and make recommendations regarding her cholelithiasis and possibility of common bile duct stones. Patient vies to return if she has acute worsening of symptoms Medical Records I reviewed the patient's medical records. Lab Data I reviewed the patient's lab results. 08/22/24 08:02 08/22/24 08:02 Labs/Radiology: Radiology Impressions Abdomen/Pelvis CT 08/22/24 07:50 IMPRESSION: 1. Choledocholithiasis with 2 tandem stones lodged in the distal common bile duct measuring in the range of 4 to 5 mm each. There may also be third stone in the lumen of the duodenum about the same size. The common duct is not dilated and measures about 5.6 mm in greatest diameter. No sign of acute cholecystitis. 2. Short segment of early acute diverticulitis involving the sigmoid colon with associated luminal narrowing. No abscess or obvious perforation. Pancolonic diverticulosis. 3. Other minor incidental findings. Findings discussed by phone with Dr. Sim the ER physician at 8:40 a.m. 08/22/2024. Gallbladder Ultrasound 08/22/24 08:42 IMPRESSION: 1. No appreciable cholelithiasis, cholecystitis, or distinct choledocholithiasis. The CBD is normal in diameter. If concern persists for choledocholithiasis, consider MRCP/ERCP. 2. Enlarged, fatty liver. Laboratory Results WBC 6.94 10^3/uL (3.29-11.43) 08/22/24 08:02 RBC 3.98 10^6/uL (3.85-5.65) 08/22/24 08:02 Hgb 12.90 g/dL (11.27-16.99) 08/22/24 08:02 Hct 39.8 % (36-47) 08/22/24 08:02 MCV 100.0 fl (85-98) H 08/22/24 08:02 MCH 32.4 pg (27-33) 08/22/24 08:02 MCHC 32.4 g/dL (30-55) 08/22/24 08:02 RDW 11.9 % (12.1-15.1) L 08/22/24 08:02 Plt Count 221 10^3/cmm (157-399) 08/22/24 08:02 MPV 11.4 fL (7.4-10.4) H 08/22/24 08:02 Neut % (Auto) 56.4 % 08/22/24 08:02 Lymph % (Auto) 29.8 % 08/22/24 08:02 [place] % (Auto) 8.8 % 08/22/24 08:02 Eos % (Auto) 3.7 % 08/22/24 08:02 Baso % (Auto) 0.9 % 08/22/24 08:02 Neut # (Auto) 3.91 10^3/uL (1.8-7.7) 08/22/24 08:02 Lymph # (Auto) 2.1 10^3/uL (0.8-4.8) 08/22/24 08:02 [place] # (Auto) 0.6 10^3/uL (0.2-0.9) 08/22/24 08:02 Eos # (Auto) 0.3 10^3/uL (0.0-0.8) 08/22/24 08:02 Baso # (Auto) 0.1 10^3/uL (0.0-0.1) 08/22/24 08:02 Nucleated RBC % (auto) 0 % 08/22/24 08:02 Nucleated RBCs # 0.0 /100WBC 08/22/24 08:02 Sodium 137 mmol/L (136-145) 08/22/24 08:02 Potassium 3.8 mmol/L (3.5-5.1) 08/22/24 08:02 Chloride 101 mmol/L (98-107) 08/22/24 08:02 Carbon Dioxide 26 mmol/L (22-29) 08/22/24 08:02 Anion Gap 13.8 (5-19) 08/22/24 08:02 BUN 12 mg/dL (6-20) 08/22/24 08:02 Creatinine 0.8 mg/dL (0.5-0.9) 08/22/24 08:02 GFR Calculation 73.9 mL/min (90-130) L 08/22/24 08:02 Glucose 185 mg/dL (65-115) H 08/22/24 08:02 Calculated Osmolality 289 mOsm/kg (285-295) 08/22/24 08:02 Calcium 9.6 mg/dL (8.5-10.5) 08/22/24 08:02 Total Bilirubin 0.5 mg/dL (0.15-1.2) 08/22/24 08:02 AST 21 U/L (0-32) 08/22/24 08:02 ALT 22 U/L (0-33) 08/22/24 08:02 Alkaline Phosphatase 46 U/L (35-105) 08/22/24 08:02 Total Protein 6.8 g/dL (6.6-8.7) 08/22/24 08:02 Albumin 4.0 g/dL (3.5-5.2) 08/22/24 08:02 Globulin 2.8 g/dL (1.3-4.6) 08/22/24 08:02 Lipase 14 U/L (13-60) 08/22/24 08:02 Urine Color Yellow (Yellow) 08/22/24 07:15 Urine Appearance Slightly cloudy (CLEAR) 08/22/24 07:15 Urine pH 5 (5-7) 08/22/24 07:15 Ur Specific [place] 1.030 (1.005-1.030) 08/22/24 07:15 Urine Protein Trace (Negative) H 08/22/24 07:15 Urine Glucose (UA) Norm (Normal) 08/22/24 07:15 Urine Ketones Negative (Negative) 08/22/24 07:15 Urine Blood Neg (Negative) 08/22/24 07:15 Urine Nitrate Negative (Negative) 08/22/24 07:15 Urine Bilirubin Neg (Negative) 08/22/24 07:15 Urine Urobilinogen Norm mg/dL (Negative) 08/22/24 07:15 Ur Leukocyte Esterase Negative (Negative) 08/22/24 07:15 Urine RBC None /hpf (0-2) 08/22/24 07:15 Urine WBC 0-4 /hpf (0-5) H 08/22/24 07:15 Ur Squamous Epith Cells 5-10 /hpf (0-5) H 08/22/24 07:15 Amorphous Sediment Not Reportable 08/22/24 07:15 Urine Bacteria 1+ /hpf (NONE) H 08/22/24 07:15 Fine Granular Casts 0-4 /lpf H 08/22/24 07:15 All radiology interpretation(s) finalized by discharge Discharge Plan Discharge Patient Disposition: Home Clinical Impression: Diverticulitis large intestine, Cholelithiasis with choledocholithiasis Condition: Stable Prescriptions: New amoxicillin-pot clavulanate 875-125 mg tablet 1 tab PO BID Qty: 14 0RF No Action multivitamin Tablet 1 tab PO DAILY fenofibrate nanocrystallized 145 mg tablet 145 mg PO DAILY aspirin [Adult Aspirin Regimen] 81 mg tablet,delayed release (DR/EC) 81 mg PO BID biotin 1 mg capsule 1 mg PO DAILY Stool Softener 50 mg capsule 100 mg PO BEDTIME lutein 20 mg capsule 20 mg PO DAILY Rx Instructions: give with meal/snack omeprazole 20 mg capsule,delayed release(DR/EC) 20 mg PO DAILY lisinopril 20 mg tablet 20 mg PO BID sennosides 8.6 mg Tablet 17.2 mg PO DAILY cod liver oil Capsule 1 cap PO BEDTIME Vitamin C 1,000 mg Tablet Extended Release 1,000 mg PO DAILY pyridoxine (vitamin B6) 200 mg Tablet 200 mg PO DAILY gemligm-unmtciwiu-lyhc Tablet 1 tab PO DAILY vit A and D3 in cod liver oil 4,000 unit-400 unit/5 mL Liquid 3,000 ml PO DAILY Probiotic 20 billion cell Capsule 20,000 mmu cells PO DAILY Rx Instructions: administer with a meal Discharge Orders: Discharge ED (Routine); Ordered 08/22/24 Ordered By: Darek Bocanegra Referrals: Donna Bailey, COMMUNICATIONS STRATEGIST [Primary Care Provider] - Discharge Diet: Full LIquid Discharge Activity: Increase activity as tolerated Patient Instructions: Opioid Safety, Pain Management Activity Restrictions/Additional Instructions: Thank you for choosing [facility] for your healthcare needs today. It is very important that you follow up as instructed or that you return to the Emergency Department should you have concerns or if your condition changes or worsens in any way. You were seen today complaint of left lower quadrant abdominal pain CT does show small segment of diverticulitis without perforation. Your white count was normal. There is an incidental notation of gallbladder stones and the appearance of 2 stones within the common bile duct. Your laboratory test did not show signs of obstruction. This should be followed up with with the surgery as well as discussing the recurrent diverticulitis with general surgeon. Case management make arrangements for a follow-up appointment with you. Coding Level of Care Code ED Vacuum Tank Tender for Mague Manzanares
[2024-08-22 07:40] LABS: Urine Appearance Slightly Cloudy (CLEAR); Urine Color Yellow (Yellow); pH Urine 5 (5-7)
[2024-08-22 07:41] LABS: Add Urine Microscopic? YES; Bilirubin Urine Neg (Negative); Blood Urine Neg (Negative); Glucose Urine UA Norm (Normal); Ketones Urine Negative (Negative); Leukocyte Esterase Urine Negative (Negative); Nitrate Urine Negative (Negative); Protein Urine Trace (Negative); Urobilinogen Urine Norm (Negative)
[2024-08-22 07:49] LABS: Add Urine Culture? No; Bacteria Urine 1+ /hpf; Fine Granular Casts Urine 0-4 /lpf; UA Manual Slide Review YES; WBC Urine 0-4 /hpf (0-5)
--- NOTE | 2024-08-22 07:50 | CT_ITS ---
WS: [id number] Exam: CT abdomen pelvis wo con [id number] Date/Time of Exam: 08/22/2024 8:07 AM Reason For Exam: Abdominal pain DLP: 1178.[address] scans at [facility] use at least one of these dose optimization techniques: automated e xposure control; mA and/or kV adjustment per patient size (includes targeted exams where dose is matc hed to clinical indication); or iterative reconstruction. Lower lung zones are clear. Probable hepatic steatosis. There are 2 small calcifications identified i n the region of the distal common bile duct suspicious for choledocholithiasis. These measure in the range of 4 to 5 mm each. No stones noted in the gallbladder. No sign of acute cholecystitis. Common b ile duct measures 5.6 mm in greatest diameter. There may be one small stone in the lumen of the duode num. The stomach, spleen and pancreas are unremarkable. Unremarkable kidneys and adrenal glands. The abdominal aorta is normal in caliber. The IVC is unremarkable in appearance. No free air or lymphaden opathy. Alvarez colonic diverticulosis. Probable short segment early acute diverticulosis of the sigmoid colon. Small fat filled umbilical hernia. Normal appendix. Unremarkable small bowel loops. No pelvic mass or lymphadenopathy. Unremarkable urinary bladder which is incompletely distended. Status post hy sterectomy. The ovaries are not visualized. Atrophy and fatty replacement of the musculature about th e LEFT hip. Etiology is unclear. No destructive bone lesions are visualized. CT/CT abdomen pelvis wo con [id number] IMPRESSION: 1. Choledocholithiasis with 2 tandem stones lodged in the distal common bile du ct measuring in the range of 4 to 5 mm each. There may also be third stone in t he lumen of the duodenum about the same size. The common duct is not dilated an d measures about 5.6 mm in greatest diameter. No sign of acute cholecystitis. 2. Short segment of early acute diverticulitis involving the sigmoid colon with associated luminal narrowing. No abscess or obvious perforation. Pancolonic di verticulosis. 3. Other minor incidental findings. Findings discussed by phone with Dr. Sim the ER physician at 8:40 a.m. .
[2024-08-22 08:31] LABS: Basophils # 0.1 10^3/uL (0.0-0.1); Basophils % 0.9 %; Eosinophils # 0.3 10^3/uL (0.0-0.8); Eosinophils % 3.7 %; Hematocrit 39.8 % (36-47); Lymphocytes # 2.1 10^3/uL (0.8-4.8); Lymphocytes % 29.8 %; Mean Corpuscular HGB Conc 32.4 g/dL (30-55); Mean Corpuscular Hemoglobin 32.4 pg (27-33); Mean Platelet Volume 11.4 fL (7.4-10.4); Monocytes # 0.6 10^3/uL (0.2-0.9); Monocytes % 8.8 %; Neutrophils # 3.91 10^3/uL (1.8-7.7); Neutrophils % 56.4 %; Nucleated Red Blood Cells % 0 %; Platelet Count 221 10^3/cmm (157-399); Red Blood Count 3.98 10^6/uL (3.85-5.65); Red Cell Distribution Width 11.9 % (12.1-15.1); White Blood Count 6.94 10^3/uL (3.29-11.43)
--- NOTE | 2024-08-22 08:42 | USR_ITS ---
PROCEDURE INFORMATION: Exam: US Abdomen; Limited Exam date and time: 08/22/2024 9:26 AM Clinical indication: Abnormal findings; Abnormal radiologic finding of the abdomen; Radiologic exam and body structure: CT abd; Prior surgery; Surgery date: 6+ months; Surgery type: Hysterectomy, csection; Additional info: Abnormal finding on CT - choledocolithiasis TECHNIQUE: Imaging protocol: Real time ultrasound of the abdomen with image documentation. Limited exam focused on the region of clinical interest. COMPARISON: CT abdomen and pelvis 08/22/2024. FINDINGS: Liver: Liver measures 18.2 cm craniocaudal. Moderate steatosis. No focal lesion. No distinct surface nodularity. Gallbladder: No appreciable cholelithiasis. Gallbladder wall is normal (2 mm). Biliary ducts: Common bile duct measures 5 mm in diameter. No distinct choledocholithiasis. Right kidney: The right kidney measures 11 cm craniocaudal. No appreciable calculus or obstruction. Portal venous: Expected hepatopetal flow in the main portal vein. US/US gall bladder [id number] IMPRESSION: 1. No appreciable cholelithiasis, cholecystitis, or distinct choledocholithiasis. The CBD is normal in diameter. If concern persists for choledocholithiasis, consider MRCP/ERCP. 2. Enlarged, fatty liver.
[2024-08-22 08:57] LABS: Alanine Aminotransferase 22 U/L (0-33); Alkaline Phosphatase 46 U/L (35-105); Anion Gap 13.8 (5-19); Aspartate Amino Transferase 21 U/L (0-32); Blood Urea Nitrogen 12 mg/dL (6-20); Calcium 9.6 mg/dL (8.5-10.5); Carbon Dioxide 26 mmol/L (22-29); Chloride 101 mmol/L (98-107); Creatinine Clr Calc Pharmacy 87.2169; Globulin 2.8 g/dL (1.3-4.6); Glomerular Filtration Rate 73.9 mL/min (90-130); Glucose 185 mg/dL (65-115); Lipase 14 U/L (13-60); Osmolality Calculated 289 mOsm/kg (285-295); Potassium 3.8 mmol/L (3.5-5.1); Sodium 137 mmol/L (136-145); Total Bilirubin 0.5 mg/dL (0.15-1.2); Total Protein 6.8 g/dL (6.6-8.7)
[2024-08-22 10:06] VITALS: BP 151/78; PULSE 72; RESP 16; O2SAT 98
--- NOTE | 2024-08-24 09:42 | DCPLANNER ---
Message sent to General Surgery for follow up
== END 2024-08-22 10:07 | disposition home or self-care (01) ==
PROVIDERS: Emergency Provider Family Medicine; PCP Nurse Practitioner Family
DX: K57.32 Diverticulitis of large intestine without perforation or abscess without bleeding (principal); K80.50 Calculus of bile duct without cholangitis or cholecystitis without obstruction; K80.20 Calculus of gallbladder without cholecystitis without obstruction; I10 Essential (primary) hypertension
CPT/HCPCS: 36415; 74176; 76705; 80053; 81001; 83690; 85025; 99284

== ENCOUNTER 2024-09-02 17:48 | Emergency (ER) | payer OTHER, SELFPAY ==
[2024-09-02] VITALS (7 sets, daily range): BP systolic 117–139; BP diastolic 60–81; PULSE 63–82; RESP 16–18; TEMP 36.5; O2SAT 94–97
[2024-09-02 20:16] LABS: Basophils % 0.5 %; Eosinophils # 0.2 10^3/uL (0.0-0.8); Eosinophils % 3.2 %; Hematocrit 42.5 % (36-47); Lymphocytes # 1.4 10^3/uL (0.8-4.8); Lymphocytes % 23.2 %; Mean Corpuscular HGB Conc 32.2 g/dL (30-55); Mean Corpuscular Hemoglobin 31.7 pg (27-33); Mean Corpuscular Volume 98.4 fl (85-98); Mean Platelet Volume 10.8 fL (7.4-10.4); Monocytes # 0.6 10^3/uL (0.2-0.9); Monocytes % 9.5 %; Neutrophils # 3.74 10^3/uL (1.8-7.7); Neutrophils % 63.3 %; Nucleated Red Blood Cells % 0 %; Platelet Count 209 10^3/cmm (157-399); Red Blood Count 4.32 10^6/uL (3.85-5.65); Red Cell Distribution Width 11.7 % (12.1-15.1); White Blood Count 5.91 10^3/uL (3.29-11.43)
[2024-09-02 20:29] LABS: Anion Gap 13.1 (5-19); Blood Urea Nitrogen 14 mg/dL (6-20); Calcium 9.7 mg/dL (8.5-10.5); Carbon Dioxide 26 mmol/L (22-29); Chloride 104 mmol/L (98-107); Creatinine Clr Calc Pharmacy 115.6968; Glucose 115 mg/dL (65-115); Osmolality Calculated 289 mOsm/kg (285-295); Potassium 4.1 mmol/L (3.5-5.1); Sodium 139 mmol/L (136-145)
[2024-09-02 21:01] LABS: Alanine Aminotransferase 47 U/L (0-33); Albumin Level 4.4 g/dL (3.5-5.2); Alkaline Phosphatase 56 U/L (35-105); Aspartate Amino Transferase 33 U/L (0-32); C Reactive Protein 10.2 mg/L (0.0-4.9); Globulin 1.8 g/dL (1.3-4.6); Lipase 16 U/L (13-60); Total Bilirubin 0.4 mg/dL (0.15-1.2); Total Protein 6.2 g/dL (6.6-8.7)
[2024-09-02 21:48] LABS: Bilirubin Urine Negative (Negative); Blood Urine Negative (Negative); Glucose Urine UA Negative (Normal); Ketones Urine Negative (Negative); Leukocyte Esterase Urine Negative (Negative); Nitrate Urine Negative (Negative); Protein Urine Negative (Negative); Specific Gravity, Urine 1.013 (1.005-1.030); Urine Appearance Clear (CLEAR); Urine Color Yellow (Yellow); Urobilinogen Urine 0.2 mg/dL (Negative); pH Urine 6.5 (5-7)
[2024-09-02 21:50] LABS: Add Urine Microscopic? YES; Bacteria Urine None Seen /hpf; Hyaline Casts Urine 0-4 /lpf; RBC Urine 0-2 /hpf (0-2); Squamous Epithelial Cell Urine 0-5 /hpf (0-5); WBC Urine 0-5 /hpf (0-5)
--- NOTE | 2024-09-02 22:31 | CTR_ITS ---
PROCEDURE INFORMATION: Exam: CT Abdomen And Pelvis Without Contrast Exam date and time: 09/02/2024 11:02 PM Age: 59 years old Clinical indication: Abdominal pain; Right; Prior surgery; Surgery date: 6+ months; Surgery type: Hysterectomy. Csection; Patient HX: C/O RT flank pain. ; Additional info: R flank pain TECHNIQUE: Imaging protocol: Computed tomography of the abdomen and pelvis without contrast. Radiation optimization: All CT scans at this facility use at least one of these dose optimization techniques: automated exposure control; mA and/or kV adjustment per patient size (includes targeted exams where dose is matched to clinical indication); or iterative reconstruction. COMPARISON: CT abdomen pelvis wo con [id number] 08/22/2024 8:10 AM RADIATION DOSE METRICS: Total DLP (mGy-cm): 1068.58 FINDINGS: Liver: Hepatic steatosis. Gallbladder and biliary ducts: Two calculi in the distal common bile duct measuring up to 4.4 mm suspected with dilation of the common bile duct to 9.2 mm, MRCP could further characterize these. Findings appear somewhat similar to prior exam. Pancreas: Normal. No ductal dilation. Spleen: Normal. No splenomegaly. Adrenal glands: Normal. No mass. Kidneys and ureters: Normal. No hydronephrosis. Stomach and bowel: Diverticulosis without diverticulitis. Appendix: No evidence of appendicitis. Intraperitoneal space: Unremarkable. No free air. No significant fluid collection. Vasculature: Unremarkable. No abdominal aortic aneurysm. Lymph nodes: Unremarkable. No enlarged lymph nodes. Urinary bladder: Unremarkable as visualized. Reproductive: Unremarkable as visualized. Bones/joints: Unremarkable. No acute fracture. Soft tissues: Small umbilical hernia containing omentum. CT/CT kidney stone [id number] IMPRESSION: 1. Two calculi in the distal common bile duct measuring up to 4.4 mm suspected with dilation of the common bile duct to 9.2 mm, MRCP could further characterize these. Findings appear somewhat similar to prior exam. 2. Diverticulosis without diverticulitis. 3. Small umbilical hernia containing omentum. 4. Hepatic steatosis.
[2024-09-03] VITALS (17 sets, daily range): BP systolic 96–140; BP diastolic 43–87; PULSE 57–656; RESP 19; O2SAT 90–98
--- NOTE | 2024-09-03 02:34 | ED_ITS ---
HPI - Abdominal Pain 2 General: Chief Complaint: Abdominal Pain Stated Complaint: low back pain Time Seen by Provider: 09/02/24 21:49 History of Present Illness: 59-year-old female with a history of rig ht flank and right upper quadrant pain. Pain has been for the last couple of days. She has known gallstones with gallstones in her bile duct, however this has not been a problem for her in the past. She was treated for diverticulitis around 3 weeks ago with antibiotics which stopped a couple weeks ago. She has not had any further problems with that. No pain with urination. No hematuria. No fever, no vomiting. She has been nauseated. Related Data Home Medications Medication Instructions Recorded Confirmed aspirin 81 mg tablet,delayed 81 mg PO BID 07/30/20 08/25/24 release (Adult Aspirin Regimen) biotin 1 mg capsule 1 mg PO DAILY 07/30/20 08/25/24 docusate sodium 50 mg capsule 100 mg PO BEDTIME 07/30/20 08/25/24 (Stool Softener) fenofibrate nanocrystallized 145 145 mg PO DAILY 07/30/20 08/25/24 mg tablet lutein 20 mg capsule 20 mg PO DAILY 07/30/20 08/25/24 multivitamin 1 tab PO DAILY 07/30/20 08/25/24 omeprazole 20 mg capsule,delayed 20 mg PO DAILY 07/30/20 08/25/24 release lisinopril 20 mg tablet 20 mg PO BID 01/03/22 08/25/24 ascorbic acid (vitamin C) 1,000 mg 1,000 mg PO DAILY 02/20/22 08/25/24 tablet,extended release (Vitamin C ER) [id number] tablet 1 tab PO DAILY 02/20/22 08/25/24 cod liver oil 1 cap PO BEDTIME 02/20/22 08/25/24 lactobacillus comb no.10 20 20,000 mmu cells PO DAILY 02/20/22 08/25/24 billion cell capsule (Probiotic) pyridoxine (vitamin B6) 200 mg 200 mg PO DAILY 02/20/22 08/25/24 tablet sennosides 8.6 mg tablet 17.2 mg PO DAILY 02/20/22 08/25/24 vitamins A and D3, cod liver oil 3,000 ml PO DAILY 02/20/22 08/25/24 4,000 unit-400 unit/5 mL oral liquid Previous Rx's Medication Instructions Recorded amoxicillin 875 mg-potassium 1 tab PO BID #14 tabs 08/22/24 clavulanate 125 mg tablet Allergies Allergy/AdvReac Type Severity Reaction Status Date / Time ciprofloxacin [From Cipro] Allergy Severe hives Verified 08/25/24 13:52 Iodinated Contrast Media Allergy Unknown Verified 08/25/24 13:52 Sulfa (Sulfonamide Allergy Unknown Verified 08/25/24 13:52 Antibiotics) PFSH ED 2 PFSH: Medical History Diverticulitis large intestine Hypertension GERD (gastroesophageal reflux disease) Common migraine with intractable migraine Surgical History Status post colonoscopy (02/21/22) History of colonoscopy last 5 yrs History of heart surgery H/O section History of hysterectomy History of amputation Traumatic History of tonsillectomy Family History Other CAD (coronary artery disease) Cancer Diabetes Hypertension Social History Smoking and tobacco/nicotine status: never used tobacco/nicotine Physical Exam 2 Const: COMMON NORMALS: no acute distress GENERAL APPEARANCE: cooperative and ill appearing (Mildly); not frail appearing HENMT: COMMON NORMALS: normocephalic, atraumatic and Normal external nose present HEAD & SCALP: normocephalic and atraumatic FACE & SINUS: normal facial exam and face symmetric NOSE: Normal external nose present Eye: COMMON NORMALS: Equal, round and reactive pupils present and EOMs intact bilaterally PUPIL: Yes Equal, round and reactive pupils present Neck/C-Spine: GENERAL: Yes trachea midline Chest: CHEST: Yes Symmetrical chest wall rise Resp: COMMON NORMALS: normal respiratory effort, No retractions, No use of accessory muscles and clear to auscultation bilaterally AUSCULTATION: clear to auscultation bilaterally Cardio: COMMON NORMALS: regular rate and regular rhythm RATE: regular rate RHYTHM: regular rhythm GI: COMMON NORMALS: Normal to inspection, nondistended, normoactive bowel sounds present and Soft to palpation PALPATION: Yes Soft to palpation and Yes Tenderness to palpation present (GI) Details: RUQ : BLADDER/KIDNEY EXAM: Yes CVA tenderness on the right Back/Pelvis: GENERAL BACK: Yes CVA tenderness Extremity: COMMON NORMALS: no pedal edema Neuro: MARCK COMA SCALE: document GCS findings Marck coma scale eye opening: Spontaneous Marck coma scale verbal response: Orientated [place] coma scale motor response: Obey commands Marck coma scale total score: 15 S ENSORY EXAM: Yes extremities (intact) Psych: COMMON NORMALS: speech normal SPEECH: Yes normal speech Skin: COMMON NORMALS: no rashes or lesions noted GENERAL SKIN EXAM: no rashes or lesions noted Course 2 Vital Signs: Vital signs: Vital Signs Temperature 97.7 F 09/02/24 17:57 Pulse Rate 70 09/03/24 04:00 Respiratory Rate 16 09/02/24 22:30 Blood Pressure 104/68 09/03/24 04:00 Pulse Oximetry 90 09/03/24 04:00 Oxygen Delivery Me thod Room Air 09/03/24 04:00 MDM - Abdominal Pain Medical Decision Making Pain continues despite Toradol and morphine. CBC is normal. BMP is normal. Liver enzymes show an AST of 33 with ALT of 47, and a bilirubin of only 0.4. CRP is 10. CT shows 2 stones in the distal common bile duct measuring up to 4.4 mm with dilation of the common bile duct to 9.2 mm. Common bile duct dilatation is a definite change from prior. Spoke with GI at [facility] in [facility]. They would like to observe the patient at their facility for ERCP given her ongoing pain. Hospitalist who accepts the patient. She will go by EMS. Lab Data 09/02/24 20:06 09/02/24 20:06 Labs/Radiology: Radiology Impressions Abdomen/Pelvis CT 09/02/24 22:31 IMPRESSION: 1. Two calculi in the distal common bile duct measuring up to 4.4 mm suspected with dilation of the common bile duct to 9.2 mm, MRCP could further characterize these. Findings appear somewhat similar to prior exam. 2. Diverticulosis without diverticulitis. 3. Small umbilical hernia containing omentum. 4. Hepatic steatosis. Laboratory Results WBC 5.91 10^3/uL (3.29-11.43) 09/02/24 20:06 RBC 4.32 10^6/uL (3.85-5.65) 09/02/24 20:06 Hgb 13.70 g/dL (11.27-16.99) 09/02/24 20:06 Hct 42.5 % (36-47) 09/02/24 20:06 MCV 98.4 fl (85-98) H 09/02/24 20:06 MCH 31.7 pg (27-33) 09/02/24 20:06 MCHC 32.2 g/dL (30-55) 09/02/24 20:06 RDW 11.7 % (12.1-15.1) L 09/02/24 20:06 Plt Count 209 10^3/cmm (157-399) 09/02/24 20:06 MPV 10.8 fL (7.4-10.4) H 09/02/24 20:06 Neut % (Auto) 63.3 % 09/02/24 20:06 Lymph % (Auto) 23.2 % 09/02/24 20:06 [place] % (Auto) 9.5 % 09/02/24 20:06 Eos % (Auto) 3.2 % 09/02/24 20:06 Baso % (Auto) 0.5 % 09/02/24 20:06 Neut # (Auto) 3.74 10^3/uL (1.8-7.7) 09/02/24 20:06 Lymph # (Auto) 1.4 10^3/uL (0.8-4.8) 09/02/24 20:06 [place] # (Auto) 0.6 10^3/uL (0.2-0.9) 09/02/24 20:06 Eos # (Auto) 0.2 10^3/uL (0.0-0.8) 09/02/24 20:06 Baso # (Auto) 0.0 10^3/uL (0.0-0.1) 09/02/24 20:06 Nucleated RBC % (auto) 0 % 09/02/24 20: Nucleated RBCs # 0.0 /100WBC 09/02/24 20:06 Sodium 139 mmol/L (136-145) 09/02/24 20:06 Potassium 4.1 mmol/L (3.5-5.1) 09/02/24 20:06 Chloride 104 mmol/L (98-107) 09/02/24 20:06 Carbon Dioxide 26 mmol/L (22-29) 09/02/24 20:06 Anion Gap 13.1 (5-19) 09/02/24 20:06 BUN 14 mg/dL (6-20) 09/02/24 20:06 Creatinine 0.6 mg/dL (0.5-0.9) 09/02/24 20:06 GFR Calculation 103.0 mL/min (90-130) 09/02/24 20:06 Glucose 115 mg/dL (65-115) 09/02/24 20:06 Calculated Osmolality 289 mOsm/kg (285-295) 09/02/24 20:06 Calcium 9.7 mg/dL (8.5-10.5) 09/02/24 20:06 Total Bilirubin 0.4 mg/dL (0.15-1.2) 09/02/24 20:06 Direct Bilirubin 0.20 mg/dL (0.00-0.30) 09/02/24 20:06 AST 33 U/L (0-32) H 09/02/24 20:06 ALT 47 U/L (0-33) H 09/02/24 20:06 Alkaline Phosphatase 56 U/L (35-105) 09/02/24 20:06 C-Reactive Protein 10.2 mg/L (0.0-4.9) H 09/02/24 20:06 Total Protein 6.2 g/dL (6.6-8.7) L 09/02/24 20:06 Albumin 4.4 g/dL (3.5-5.2) 09/02/24 20:06 Globulin 1.8 g/dL (1.3-4.6) 09/02/24 20:06 Lipase 16 U/L (13-60) 09/02/24 20:06 Urine Color Yellow (Yellow) 09/02/24 21: Urine Appearance Clear (CLEAR) 09/02/24 21: Urine pH 6.5 (5-7) 09/02/24 21: Ur Specific [place] 1.013 (1.005-1.030) 09/02/24 21:28 Urine Protein Negative (Negative) 09/02/24 21: Urine Glucose (UA) Negative (Normal) 09/02/24 21: Urine Ketones Negative (Negative) 09/02/24 21:28 Urine Blood Negative (Negative) 09/02/24 21:28 Urine Nitrate Negative (Negative) 09/02/24 21:28 Urine Bilirubin Negative (Negative) 09/02/24 21:28 Urine Urobilinogen 0.2 mg/dL (Negative) 09/02/24 21:28 Ur Leukocyte Esterase Negative (Negative) 09/02/24 21:28 Urine RBC 0-2 /hpf (0-2) 09/02/24 21:28 Urine WBC 0-5 /hpf (0-5) 09/02/24 21:28 Ur Squamous Epith Cells 0-5 /hpf (0-5) 09/02/24 21:28 Amorphous Sediment Not Reportable 09/02/24 21:28 Urine Bacteria None seen /hpf (NONE) 09/02/24 21: Hyaline Casts 0-4 /lpf H 09/02/24 21:28 All radiology interpretation(s) finalized by discharge Discharge Plan Discharge Patient Disposition: Xfer Short-Term Hosp Clinical Impression: Choledocholithiasis Condition: Fair Prescriptions: No Action multivitamin Tablet 1 tab PO DAILY fenofibrate nanocrystallized 145 mg tablet 145 mg PO DAILY aspirin [Adult Aspirin Regimen] 81 mg tablet,delayed release (DR/EC) 81 mg PO BID biotin 1 mg capsule 1 mg PO DAILY Stool Softener 50 mg capsule 100 mg PO BEDTIME lutein 20 mg capsule 20 mg PO DAILY Rx Instructions: give with meal/snack omeprazole 20 mg capsule,delayed release(DR/EC) 20 mg PO DAILY lisinopril 20 mg tablet 20 mg PO BID sennosides 8.6 mg Tablet 17.2 mg PO DAILY cod liver oil Capsule 1 cap PO BEDTIME Vitamin C 1,000 mg Tablet Extended Release 1,000 mg PO DAILY pyridoxine (vitamin B6) 200 mg Tablet 200 mg PO DAILY [id number] Tablet 1 tab PO DAILY vit A and D3 in cod liver oil 4,000 unit-400 unit/5 mL Liquid 3,000 ml PO DAILY Probiotic 20 billion cell Capsule 20,000 mmu cells PO DAILY Rx Instructions: administer with a meal amoxicillin-pot clavulanate 875-125 mg tablet 1 tab PO BID Qty: 14 0RF Referrals: Donna Bailey TANK SETTER [Primary Care Provider] - Coding Level of Care Code ED Centrifugal Drier Operator for Rowdyg Leighton
[2024-09-03] MEDS: ondansetron 2 mg/ML SDV 2 mL 4 MG IVP (02:50)
[2024-09-03] MEDS: ketorolac 30 mg/mL INJ IVP (02:50)
[2024-09-03] MEDS: sodium chloride 0.9% 1,000 ML 150 ML IV (03:55)
[2024-09-03] MEDS: morphine 4 mg/mL SDV 1 mL IVP (07:45)
== END 2024-09-03 07:55 | disposition short-term general hospital (02) ==
PROVIDERS: Emergency Provider Emergency Medicine; PCP Nurse Practitioner Family
DX: K80.50 Calculus of bile duct without cholangitis or cholecystitis without obstruction (principal); Z79.82 Long term (current) use of aspirin; I10 Essential (primary) hypertension
CPT/HCPCS: 36415; 74176; 80048; 80076; 81001; 83690; 85025; 86140; 96361; 96374; 96375; 99285; J1885; J2270; J2405; J7030

== ENCOUNTER 2024-09-29 09:47 | Observation (INO) | payer OTHER, SELFPAY ==
[2024-09-29] VITALS (9 sets, daily range): BP systolic 102–155; BP diastolic 55–86; PULSE 60–76; RESP 17–19; TEMP 36.4–36.7; O2SAT 92–99; BMI 46.8
--- NOTE | 2024-09-29 09:58 | XRR_ITS ---
PROCEDURE INFORMATION: Exam: XR Chest Exam date and time: 09/29/2024 10:04 AM Age: 59 years old Clinical indication: Dyspnea; Additional info: Dyspnea/cough TECHNIQUE: Imaging protocol: Radiologic exam of the chest. Views: 1 view. COMPARISON: CR XR chest 1V portable [id number] 12/14/2020 7:23 PM FINDINGS: Lungs: Unremarkable. No consolidation. Pleural spaces: Unremarkable. No pleural effusion. No pneumothorax. Heart/Mediastinum: Unremarkable. No cardiomegaly. Bones/joints: Unremarkable. XR/XR chest 1V portable [id number] IMPRESSION: No acute findings.
--- NOTE | 2024-09-29 10:01 | CTR_ITS ---
PROCEDURE INFORMATION: Exam: CT Abdomen And Pelvis Without Contrast Exam date and time: 09/29/2024 10:22 AM Age: 59 years old Clinical indication: Abdominal pain; Flank; Left; Prior surgery; Surgery date: <1 month; Surgery type: Gb; Patient HX: Total hysterectomy and csection TECHNIQUE: Imaging protocol: Computed tomography of the abdomen and pelvis without contrast. Radiation optimization: All CT scans at this facility use at least one of these dose optimization techniques: automated exposure control; mA and/or kV adjustment per patient size (includes targeted exams where dose is matched to clinical indication); or iterative reconstruction. COMPARISON: CT kidney stone [id number] 09/02/2024 11:02 PM RADIATION DOSE METRICS: Total DLP (mGy-cm): 1098.73 FINDINGS: Lungs: Lung bases are clear as visualized. Liver: Normal. No mass. Gallbladder and biliary ducts: There are small hyperdensities within the gallbladder fossa. These could represent spilled gallstones or potentially could represent hyperdense suture material from prior gallbladder surgery. There is a biliary stent present. There is pneumobilia. Pancreas: There is a stent within the pancreatic duct of the pancreatic head. There are mild peripancreatic inflammatory change involving the uncinate process suggesting mild pancreatitis. Spleen: Normal. No splenomegaly. Adrenal glands: Normal. No mass. Kidneys and ureters: Normal. No hydronephrosis. Stomach and bowel: There are scattered colonic diverticula. No large bowel wall thickening is appreciated. No dilated loops of large or small bowel is appreciated. Appendix: No evidence of appendicitis. Intraperitoneal space: No free air or free fluid is identified. There is fat stranding within the upper abdominal mesentery (series 3, image 87 through 112). This may be related to prior surgery. Please note that this was not present on prior exam. Vasculature: Unremarkable. No abdominal aortic aneurysm. Lymph nodes: There are multiple small as well as borderline enlarged periportal and peripancreatic lymph nodes. Urinary bladder: Unremarkable as visualized. Reproductive: The uterus is not identified. Bones/joints: Unremarkable. No acute fracture. Soft tissues: There is a small fat filled periumbilical hernia. There is edema within the anterior subcutaneous tissues likely related to recent surgery. CT/CT abdomen pelvis wo con [id number] IMPRESSION: 1. Multiple small hyperdensities within the gallbladder fossa could represent spilled stones or suture material from prior surgery. 2. There is both a biliary and pancreatic stent present. Charley pancreatic inflammatory change suggest pancreatitis involving the uncinate process. 3. Abnormal soft tissue density within the upper mesentery not present on prior exam likely related to prior surgery. Potentially this could represent inflammation or even a small amount of hemorrhage. 4. Multiple small as well as borderline enlarged peripancreatic and periportal lymph nodes likely inflammatory. 5. Diverticulosis.
--- NOTE | 2024-09-29 10:10 | ED_ITS ---
HPI - Abdominal Pain 2 General: Chief Complaint: Abdominal Pain Stated Complaint: post surgery complications Time Seen by Provider: 09/29/24 09:50 History of Present Illness: 59-year-old female presents to the [facility] ency room complaining of supraumbilical pain she relates to her recent surgery. She had cholelithiasis had an ERCP and then subsequently had a laparoscopic cholecystectomy she has not had any fever sweats chills no vomiting or diarrhea noted today. Reviewed history of frequency has burning supraumbilical pain began this morning. No injury to the abdomen. Associated Symptoms: Reports nausea; Denies chills, diarrhea, dysuria, fever(s) and vomiting Related Data Home Medications Medication Instructions Recorded Confirmed aspirin 81 mg tablet,delayed 81 mg PO BID 07/30/20 09/29/24 release (Adult Aspirin Regimen) biotin 1 mg capsule 1 mg PO DAILY 07/30/20 09/29/24 docusate sodium 50 mg capsule 100 mg PO BEDTIME 07/30/20 09/29/24 (Stool Softener) fenofibrate nanocrystallized 145 145 mg PO DAILY 07/30/20 09/29/24 mg tablet lutein 20 mg capsule 20 mg PO DAILY 07/30/20 09/29/24 multivitamin 1 tab PO DAILY 07/30/20 09/29/24 lisinopril 20 mg tablet 20 mg PO BID 01/03/22 09/29/24 ascorbic acid (vitamin C) 1,000 mg 1,000 mg PO DAILY 02/20/22 09/29/24 tablet,extended release (Vitamin C ER) cod liver oil 1 cap PO BEDTIME 02/20/22 09/29/24 lactobacillus comb no.10 20 20,000 mmu cells PO DAILY 02/20/22 09/29/24 billion cell capsule (Probiotic) sennosides 8.6 mg tablet 17.2 mg PO DAILY 02/20/22 09/29/24 [id number] 333 mg-133 1 tab PO DAILY 09/29/24 09/29/24 mg-5 mg tablet naloxone 4 mg/actuation nasal spray 1 spray intranasal Q2H PRN overdose 09/29/24 09/29/24 oxycodone 5 mg tablet 5 mg PO Q6H PRN Pain 09/29/24 09/29/24 pyridoxine (vitamin B6) 250 mg 250 mg PO DAILY 09/29/24 09/29/24 tablet (Vitamin B-6) Allergies Allergy/AdvReac Type Severity Reaction Status Date / Time ciprofloxacin [From Cipro] Allergy Severe hives Verified 09/29/24 10:04 Iodinated Contrast Media Allergy Unknown Verified 09/29/24 10:04 Sulfa (Sulfonamide Allergy Unknown Verified 09/29/24 10:04 Antibiotics) Review of Systems 2 Const: Denies: fever(s) or chills Card: Denies: chest pain Resp: Denies: dyspnea GI: Reports: abdominal pain and nausea; Denies: vomiting or diarrhea : Denies: dysuria, urinary frequency or urinary urgency Musc: Denies: neck pain or back pain Skin/Breast: Denies: rash PFSH ED 2 PFSH: Medical History Diverticulitis large intestine Hypertension GERD (gastroesophageal reflux disease) Common migraine with intractable migraine Surgical History Status post colonoscopy (02/21/22) History of colonoscopy last 5 yrs History of heart surgery H/O section History of hysterectomy History of amputation Traumatic History of tonsillectomy Family History Other CAD (coronary artery disease) Cancer Diabetes Hypertension Social History Smoking and tobacco/nicotine status: never used tobacco/nicotine Physical Exam 2 Const: COMMON NORMALS: no acute distress GENERAL APPEARANCE: cooperative and comfortable ORIENTATION/CONSCIOUSNESS: Yes awake, Yes oriented to person, Yes oriented to place and Yes oriented to time HENMT: COMMON NORMALS: normocephalic, atraumatic and hearing grossly normal bilaterally HEAD & SCALP: normocephalic and atraumatic Resp: COMMON NORMALS: normal respiratory effort, No retractions, No use of accessory muscles and clear to auscultation bilaterally AUSCULTATION: clear to auscultation bilaterally Cardio: COMMON NORMALS: regular rate, regular rhythm and No murmurs present (Cardio) RATE: regular rate RHYTHM: regular rhythm GI: COMMON NORMALS: No hepatosplenomegaly present AUSCULTATION: Yes normoactive bowel sounds PALPATION: Yes Tenderness to palpation present (GI) (Supraumbilical pain with palpation some supraumbilical fullness.), No Guarding due to palpation present (GI) and Yes No hepatosplenomegaly present OTHER: Trocar incisions are healing in the abdomen there is no sign of skin breakdown ulceration or abscess no erythema or drainage. Extremity: COMMON NORMALS: normal to inspection, capillary refill normal, no clubbing, cyanosis or edema, no calf tenderness and no pedal edema Neuro: SENSORIUM/ORIENTATION: Yes oriented to person, Yes oriented to place and Yes oriented to time Skin: COMMON NORMALS: no rashes or lesions noted GENERAL SKIN EXAM: no rashes or lesions noted Course 2 Vital Signs: Vital signs: Vital Signs Temperature 97.5 F L 09/29/24 10:01 Pulse Rate 64 09/29/24 14:02 Blood Pressure 131/79 09/29/24 14:02 Pulse Oximetry 99 09/29/24 14:02 Oxygen Delivery Me thod Room Air 09/29/24 14:02 MDM - Abdominal Pain Medical Decision Making Patient has some inflammation around the pancreas is slightly elevated lipase liver functions and T. bili are normal. There is a periumbilical hernia was what may be scarring or inflammation she is tender in the supraumbilical region there is no bowel in that area. Will observe observe as an inpatient may keep her n.p.o. IV fluids discussed with hospitalist orders written Medical Records I reviewed the patient's medical records. Lab Data I reviewed the patient's lab results. 09/29/24 10:04 09/29/24 10:04 Labs/Radiology: Radiology Impressions Chest X-Ray 09/29/24 09:58 IMPRESSION: No acute findings. Abdomen/Pelvis CT 09/29/24 10:01 IMPRESSION: 1. Multiple small hyperdensities within the gallbladder fossa could represent spilled stones or suture material from prior surgery. 2. There is both a biliary and pancreatic stent present. Charley pancreatic inflammatory change suggest pancreatitis involving the uncinate process. 3. Abnormal soft tissue density within the upper mesentery not present on prior exam likely related to prior surgery. Potentially this could represent inflammation or even a small amount of hemorrhage. 4. Multiple small as well as borderline enlarged peripancreatic and periportal lymph nodes likely inflammatory. 5. Diverticulosis. ADDENDUM: 09/29/24 [id number] Addendum: Discussed findings on the phone with referring physician. Exact etiology for mesenteric density is uncertain. Follow-up in 3 months may be of benefit to evaluate whether this resolves or remains present. Abdomen Ultrasound 09/29/24 13:00 IMPRESSION: Fatty liver Laboratory Results WBC 6.87 10^3/uL (3.29-11.43) 09/29/24 10:04 RBC 4.20 10^6/uL (3.85-5.65) 09/29/24 10:04 Hgb 13.00 g/dL (11.27-16.99) 09/29/24 10:04 Hct 41.2 % (36-47) 09/29/24 10:04 MCV 98.1 fl (85-98) H 09/29/24 10:04 MCH 31.0 pg (27-33) 09/29/24 10:04 MCHC 31.6 g/dL (30-55) 09/29/24 10:04 RDW 11.9 % (12.1-15.1) L 09/29/24 10:04 Plt Count 269 10^3/cmm (157-399) 09/29/24 10:04 MPV 10.7 fL (7.4-10.4) H 09/29/24 10:04 Neut % (Auto) 48.3 % 09/29/24 10:04 Lymph % (Auto) 37.0 % 09/29/24 10:04 [place] % (Auto) 7.7 % 09/29/24 10:04 Eos % (Auto) 6.0 % 09/29/24 10:04 Baso % (Auto) 0.9 % 09/29/24 10:04 Neut # (Auto) 3.32 10^3/uL (1.8-7.7) 09/29/24 10:04 Lymph # (Auto) 2.5 10^3/uL (0.8-4.8) 09/29/24 10:04 [place] # (Auto) 0.5 10^3/uL (0.2-0.9) 09/29/24 10:04 Eos # (Auto) 0.4 10^3/uL (0.0-0.8) 09/29/24 10:04 Baso # (Auto) 0.1 10^3/uL (0.0-0.1) 09/29/24 10:04 Nucleated RBC % (auto) 0 % 09/29/24 10:04 Nucleated RBCs # 0.0 /100WBC 09/29/24 10:04 PT 13.20 SECONDS (12.1-14.9) 09/29/24 10:04 INR 0.98 (0.8-1.2) 09/29/24 10:04 Sodium 142 mmol/L (136-145) 09/29/24 10:04 Potassium 3.9 mmol/L (3.5-5.1) 09/29/24 10:04 Chloride 104 mmol/L (98-107) 09/29/24 10:04 Carbon Dioxide 24 mmol/L (22-29) 09/29/24 10:04 Anion Gap 17.9 (5-19) 09/29/24 10:04 BUN 16 mg/dL (6-20) 09/29/24 10:04 Creatinine 0.5 mg/dL (0.5-0.9) 09/29/24 10:04 GFR Calculation 127.2 mL/min (90-130) 09/29/24 10:04 Glucose 165 mg/dL (65-115) H 09/29/24 10:04 Estimat Average Glucose 117 09/29/24 10:04 Hemoglobin A1c 5.7 % (4.0-6.0) 09/29/24 10:04 Calculated Osmolality 299 mOsm/kg (285-295) H 09/29/24 10:04 Lactic Acid 2.2 mmol/L (0.5-2.2) 09/29/24 10:04 Calcium 9.7 mg/dL (8.5-10.5) 09/29/24 10:04 Total Bilirubin 0.4 mg/dL (0.15-1.2) 09/29/24 10:04 AST 24 U/L (0-32) 09/29/24 10:04 ALT 20 U/L (0-33) 09/29/24 10:04 Alkaline Phosphatase 58 U/L (35-105) 09/29/24 10:04 C-Reactive Protein 7.2 mg/L (0.0-4.9) H 09/29/24 10:04 Total Protein 7.4 g/dL (6.6-8.7) 09/29/24 10:04 Albumin 4.2 g/dL (3.5-5.2) 09/29/24 10:04 Globulin 3.2 g/dL (1.3-4.6) 09/29/24 10:04 Triglycerides 222 mg/dL (0-150) H 09/29/24 10:04 Cholesterol 190 mg/dL (0-200) 09/29/24 10:04 LDL Cholesterol, Calc 115 mg/dL (50-129) 09/29/24 10:04 HDL Cholesterol 31 mg/dL (60-100) L 09/29/24 10:04 LDL/HDL Ratio 3.71 RATIO (0.00-3.22) H 09/29/24 10:04 Cholesterol/HDL Ratio 6.13 mg/dL (0.0-4.40) H 09/29/24 10:04 Lipase 176 U/L (13-60) H 09/29/24 10:04 Procalcitonin 0.05 ng/mL (0-0.5) 09/29/24 10:04 TSH 5.94 uIU/mL (0.27-4.20) H 09/29/24 10:04 Urine Color Dark yellow (Yellow) A 09/29/24 10:19 Urine Appearance Cloudy (CLEAR) A 09/29/24 10:19 Urine pH 5.0 (5-7) 09/29/24 10:19 Ur Specific [place] 1.028 (1.005-1.030) 09/29/24 10:19 Urine Protein Trace (Negative) A 09/29/24 10:19 Urine Glucose (UA) Negative (Normal) 09/29/24 10:19 Urine Ketones Trace (Negative) 09/29/24 10:19 Urine Blood Negative (Negative) 09/29/24 10:19 Urine Nitrate Negative (Negative) 09/29/24 10:19 Urine Bilirubin 1+ (Negative) H 09/29/24 10:19 Urine Urobilinogen 1.0 mg/dL (Negative) 09/29/24 10:19 Ur Leukocyte Esterase Negative (Negative) 09/29/24 10:19 Urine RBC 21-50 /hpf (0-2) H 09/29/24 10:19 Urine WBC 6-10 /hpf (0-5) 09/29/24 10:19 Ur Squamous Epith Cells 21-50 /hpf (0-5) 09/29/24 10:19 Uric Acid Crystals >100 /hpf H 09/29/24 10:19 Amorphous Sediment Not Reportable 09/29/24 10:19 Urine Bacteria 1+ /hpf (NONE) H 09/29/24 10:19 Hyaline Casts 18.61 /lpf 09/29/24 10:19 All radiology interpretation(s) finalized by discharge Discharge Plan Discharge Patient Disposition: Placed in Observation Clinical Impression: Pancreatitis, Abdominal wall hernia, Status post laparoscopic cholecystectomy Condition: Stable Prescriptions: No Action multivitamin Tablet 1 tab PO DAILY fenofibrate nanocrystallized 145 mg tablet 145 mg PO DAILY aspirin [Adult Aspirin Regimen] 81 mg tablet,delayed release (DR/EC) 81 mg PO BID biotin 1 mg capsule 1 mg PO DAILY Stool Softener 50 mg capsule 100 mg PO BEDTIME lutein 20 mg capsule 20 mg PO DAILY Rx Instructions: give with meal/snack lisinopril 20 mg tablet 20 mg PO BID sennosides 8.6 mg Tablet 17.2 mg PO DAILY cod liver oil Capsule 1 cap PO BEDTIME Vitamin C 1,000 mg Tablet Extended Release 1,000 mg PO DAILY Probiotic 20 billion cell Capsule 20,000 mmu cells PO DAILY Rx Instructions: administer with a meal pyridoxine (vitamin B6) [Vitamin B-6] 250 mg Tablet 250 mg PO DAILY oxycodone 5 mg tablet 5 mg PO Q6H PRN (Reason: Pain) [id number] 333-133-5 mg Tablet 1 tab PO DAILY naloxone 4 mg/actuation spray,non-aerosol 1 spray INTRANASAL Q2H PRN (Reason: overdose) Referrals: Donna Bailey FNP [Primary Care Provider] - Coding Level of Care Code ED Saw Cleaner for Mague Manzanares
[2024-09-29 10:11] LABS: Basophils # 0.1 10^3/uL (0.0-0.1); Basophils % 0.9 %; Eosinophils # 0.4 10^3/uL (0.0-0.8); Hematocrit 41.2 % (36-47); Lymphocytes # 2.5 10^3/uL (0.8-4.8); Mean Corpuscular HGB Conc 31.6 g/dL (30-55); Mean Corpuscular Volume 98.1 fl (85-98); Mean Platelet Volume 10.7 fL (7.4-10.4); Monocytes # 0.5 10^3/uL (0.2-0.9); Monocytes % 7.7 %; Neutrophils # 3.32 10^3/uL (1.8-7.7); Neutrophils % 48.3 %; Nucleated Red Blood Cells % 0 %; Platelet Count 269 10^3/cmm (157-399); Red Cell Distribution Width 11.9 % (12.1-15.1); White Blood Count 6.87 10^3/uL (3.29-11.43)
[2024-09-29 10:25] LABS: Alanine Aminotransferase 20 U/L (0-33); Albumin Level 4.2 g/dL (3.5-5.2); Alkaline Phosphatase 58 U/L (35-105); Anion Gap 17.9 (5-19); Aspartate Amino Transferase 24 U/L (0-32); Blood Urea Nitrogen 16 mg/dL (6-20); Calcium 9.7 mg/dL (8.5-10.5); Carbon Dioxide 24 mmol/L (22-29); Chloride 104 mmol/L (98-107); Creatinine Clr Calc Pharmacy 138.8361; Globulin 3.2 g/dL (1.3-4.6); Glomerular Filtration Rate 127.2 mL/min (90-130); Glucose 165 mg/dL (65-115); Osmolality Calculated 299 mOsm/kg (285-295); Potassium 3.9 mmol/L (3.5-5.1); Sodium 142 mmol/L (136-145); Total Bilirubin 0.4 mg/dL (0.15-1.2); Total Protein 7.4 g/dL (6.6-8.7)
[2024-09-29 10:32] LABS: Bilirubin Urine 1+ (Negative); Blood Urine Negative (Negative); Glucose Urine UA Negative (Normal); Ketones Urine Trace (Negative); Leukocyte Esterase Urine Negative (Negative); Nitrate Urine Negative (Negative); Protein Urine Trace (Negative); Specific Gravity, Urine 1.028 (1.005-1.030); Urine Appearance Cloudy (CLEAR); Urine Color Dark Yellow (Yellow)
[2024-09-29 10:34] LABS: Add Urine Microscopic? YES; Bacteria Urine 1+ /hpf; Hyaline Casts Urine 18.61 /lpf; RBC Urine 21-50 /hpf (0-2); Squamous Epithelial Cell Urine 21-50 /hpf (0-5)
--- NOTE | 2024-09-29 10:43 | PC.PHAR ---
Pt states last took medication yesterday. Pt states only new meds are Narcan and Oxycodone 5mg filled 09/07/24
[2024-09-29 10:48] LABS: Add Urine Culture? No; UA Slide Review UA Slide Review Perf; Uric Acid Crystals Urine >100 /hpf
[2024-09-29 11:46] LABS: Lipase 176 U/L (13-60)
[2024-09-29] MEDS: sodium chloride 0.9% 1,000 ML 999 ML IV (12:54)
--- NOTE | 2024-09-29 13:00 | USR_ITS ---
PROCEDURE INFORMATION: Exam: US Abdomen, Limited; Right Upper Quadrant Exam date and time: 09/29/2024 1:17 PM Age: 59 years old Clinical indication: Abdominal pain; Prior surgery; Surgery date: 6+ months; Surgery type: Cholecystectomy; Additional info: Liver, pancreas TECHNIQUE: Imaging protocol: Real time ultrasound of the abdomen with image documentation. Limited exam focused on the right upper quadrant. COMPARISON: US gall bladder [id number] 08/22/2024 9:26 AM FINDINGS: Liver: The liver demonstrates diffuse fatty infiltration. No evidence of liver mass. Gallbladder: The gallbladder has been resected. Biliary ducts: Normal. No stones. No dilation. Pancreas: Visualized pancreas is unremarkable. Right kidney: Normal. No mass. No hydronephrosis. US/US abdomen limited [id number] IMPRESSION: Fatty liver
--- NOTE | 2024-09-29 13:01 | P.HP_ITS ---
Providers/Chief Complaint 2 Primary Care Provider: Donna Bailey Chief Complaint: post surgery complications History of Present Illness Radha Aguilar is a 59 year old female patient With a past medical history of choledocholithiasis status post stenting to pancreatic duct,, biliary stent, with subsequent cholecystectomy, had a 11-day hospitalization at [facility], has been out of the hospital for about 3 weeks, who presents [facility] due to abdominal pain in the epigastrium, pain in the supraumbilical region, associate with nausea,. Patient denies any fevers, no chills, does report nausea, no vomiting, no diarrhea, her pain is primarily in the epigastrium, in the supraumbilical region, no drainage from her surgical site, Review of Systems 2 Card: Denies: chest pain Resp: Denies: dyspnea GI: Reports: abdominal pain; Denies: nausea or vomiting Medications/Allergies Home Medications Medication Instructions Recorded Confirmed Last Taken Type aspirin 81 mg tablet,delayed 81 mg PO BID 07/30/20 09/29/24 09/28/24 History release (Adult Aspirin Regimen) biotin 1 mg capsule 1 mg PO DAILY 07/30/20 09/29/24 09/28/24 History docusate sodium 50 mg capsule 100 mg PO BEDTIME 07/30/20 09/29/24 09/28/24 History (Stool Softener) fenofibrate nanocrystallized 145 145 mg PO DAILY 07/30/20 09/29/24 09/28/24 History mg tablet lutein 20 mg capsule 20 mg PO DAILY 07/30/20 09/29/24 09/28/24 History multivitamin 1 tab PO DAILY 07/30/20 09/29/24 09/28/24 History lisinopril 20 mg tablet 20 mg PO BID 01/03/22 09/29/24 09/28/24 History ascorbic acid (vitamin C) 1,000 mg 1,000 mg PO DAILY 02/20/22 09/29/24 09/28/24 History tablet,extended release (Vitamin C ER) cod liver oil 1 cap PO BEDTIME 02/20/22 09/29/24 09/28/24 History lactobacillus comb no.10 20 20,000 mmu cells PO DAILY 02/20/22 09/29/24 09/28/24 History billion cell capsule (Probiotic) sennosides 8.6 mg tablet 17.2 mg PO DAILY 02/20/22 09/29/24 09/28/24 History aikoncn-xdmobmvmt-xdsn 333 mg-133 1 tab PO DAILY 09/29/24 09/29/24 09/28/24 History mg-5 mg tablet naloxone 4 mg/actuation nasal spray 1 spray intranasal Q2H PRN overdose 09/29/24 09/29/24 Unknown History oxycodone 5 mg tablet 5 mg PO Q6H PRN Pain 09/29/24 09/29/24 Unknown History pyridoxine (vitamin B6) 250 mg 250 mg PO DAILY 09/29/24 09/29/24 09/28/24 History tablet (Vitamin B-6) Allergies Allergy/AdvReac Type Severity Reaction Status Date / Time ciprofloxacin [From Cipro] Allergy Severe hives Verified 09/29/24 10:04 Iodinated Contrast Media Allergy Unknown Verified 09/29/24 10:04 Sulfa (Sulfonamide Allergy Unknown Verified 09/29/24 10:04 Antibiotics) PFSH Acute 2 PFSH: Medical History Diverticulitis large intestine Hypertension GERD (gastroesophageal reflux disease) Common migraine with intractable migraine Surgical History Status post colonoscopy (02/21/22) History of colonoscopy last 5 yrs History of heart surgery H/O section History of hysterectomy History of amputation Traumatic History of tonsillectomy Family History Other CAD (coronary artery disease) Cancer Diabetes Hypertension Social History Smoking and tobacco/nicotine status: never used tobacco/nicotine Vitals/I&O/Wt Last Vital Signs Temp 97.5 F L 09/29/24 10:01 Pulse 72 09/29/24 11:13 BP 118/73 09/29/24 11:13 Pulse Ox 97 09/29/24 11:13 O2 Del Method Room Air 09/29/24 10:01 Weight last 48 hrs Weight 108.862 kg Physical Exam 2 Const: COMMON NORMALS: no acute distress and patient oriented x3 Resp: COMMON NORMALS: normal respiratory effort, No retractions, No use of accessory muscles and clear to auscultation bilaterally AUSCULTATION: clear to auscultation bilaterally Cardio: COMMON NORMALS: no JVD, regular rate, regular rhythm, S1 normal heart sound present and S2 normal heart sound present RATE: regular rate RHYTHM: regular rhythm HEART SOUNDS: S1 normal heart sound present and S2 normal heart sound present GI: COMMON NORMALS: Normal to inspection, nondistended, normoactive bowel sounds present, Soft to palpation and non-tender OTHER: Surgical site from laparoscopic cholecystectomy looks clean and dry Extremity: COMMON NORMALS: no calf tenderness and no pedal edema Neuro: COMMON NORMALS: patient oriented x3 Psych: COMMON NORMALS: mental status grossly normal Data 09/29/24 10:04 09/29/24 10:04 A&P Assessment and plan (1) Obesity: (2) Abdominal pain: Plan Abdominal pain CT/CT abdomen pelvis wo con [id number] IMPRESSION: 1. Multiple small hyperdensities within the gallbladder fossa could represent spilled stones or suture material from prior surgery. 2. There is both a biliary and pancreatic stent present. Charley pancreatic inflammatory change suggest pancreatitis involving the uncinate process. 3. Abnormal soft tissue density within the upper mesentery not present on prior exam likely related to prior surgery. Potentially this could represent inflammation or even a small amount of hemorrhage. 4. Multiple small as well as borderline enlarged peripancreatic and periportal lymph nodes likely inflammatory. 5. Diverticulosis. -Does have lipase elevation -No recent steroid use, no antibiotics in the last 3 weeks, no alcohol use -She was told that she had pancreatitis, gallstone pancreatitis when she was at [facility] ? Plan ? Ultrasound abdomen ? IV fluids ? Morphine for pain -Zofran for nausea ? Clear liquid diet ? Serial abdominal exams ? Ordered inflammatory markers ? Full code # Lovenox for DVT prophylaxis Spoke to patient, spoke to family member at bedside spoke to nursing staff, spoke to ER physician Attestations 2 Medical Necessity Statement*: Patient requires hospitalization, inpatient, greater than 2 midnights for abdominal pain Diagnoses Obesity E66.9 Abdominal pain R10.9
[2024-09-29 13:18] LABS: Estmated Average Glucose 117; Hemoglobin A1C 5.7 % (4.0-6.0)
[2024-09-29 13:24] LABS: Lactic Sepsis W/Reflex 2.2 mmol/L (0.5-2.2)
[2024-09-29 13:30] LABS: INR 0.98 (0.8-1.2)
[2024-09-29 13:35] LABS: Procalcitonin 0.05 ng/mL (0-0.5); Thyroid Stimulating Hormone 5.94 uIU/mL (0.27-4.20)
[2024-09-29 13:46] LABS: C Reactive Protein 7.2 mg/L (0.0-4.9); Chol HDL Ratio 6.13 mg/dL (0.0-4.40); Cholesterol 190 mg/dL (0-200); HDL Cholesterol 31 mg/dL (60-100); LDL Cholesterol Calculated 115 mg/dL (50-129); LDL HDL Ratio 3.71 RATIO (0.00-3.22); Triglycerides 222 mg/dL (0-150)
[2024-09-29] MEDS: pantoprazole 40 mg SDV IVP (13:56)
[2024-09-29] MEDS: enoxaparin 40 mg/0.4 mL Syringe SUBCUT (13:58)
[2024-09-29] MEDS: cefTRIAXone 1,000 mg SDV 1000 MG IVP (13:58)
[2024-09-29] MEDS: sodium chloride 0.9% 1,000 ML 50 ML IV (14:24)
[2024-09-29 14:48] LABS: Reflex Lactate Order REFLEX LACTIC ORDERD
[2024-09-29 15:13] LABS: Lactic Acid level (Lactate) 1.2 mmol/L (0.5-2.2)
--- NOTE | 2024-09-29 15:40 | PC.NURSE ---
Patient wished to have other family members added to her contact list
[2024-09-29] MEDS: morphine 4 mg/mL SDV 1 mL 2 MG IVP (16:11)
[2024-09-29] MEDS: ondansetron 2 mg/ML SDV 2 mL 4 MG IVP (16:18)
[2024-09-29] MEDS: lisinopril 20 mg Tablet PO (17:11)
[2024-09-30] MEDS: pantoprazole 40 mg SDV IVP (01:15)
[2024-09-30 03:52] VITALS: BP 126/69; PULSE 62; RESP 19; TEMP 36.7; O2SAT 93
[2024-09-30 05:53] LABS: Basophils # 0.1 10^3/uL (0.0-0.1); Basophils % 0.9 %; Eosinophils # 0.4 10^3/uL (0.0-0.8); Eosinophils % 7.9 %; Hematocrit 34.9 % (36-47); Lymphocytes # 2.6 10^3/uL (0.8-4.8); Lymphocytes % 46.3 %; Mean Corpuscular HGB Conc 31.2 g/dL (30-55); Mean Corpuscular Hemoglobin 31.1 pg (27-33); Mean Corpuscular Volume 99.7 fl (85-98); Mean Platelet Volume 10.7 fL (7.4-10.4); Monocytes # 0.5 10^3/uL (0.2-0.9); Monocytes % 8.5 %; Neutrophils # 2.01 10^3/uL (1.8-7.7); Neutrophils % 36.2 %; Nucleated Red Blood Cells % 0 %; Platelet Count 173 10^3/cmm (157-399); White Blood Count 5.55 10^3/uL (3.29-11.43)
[2024-09-30 06:11] LABS: Lipase 60 U/L (13-60)
[2024-09-30 06:13] LABS: Alanine Aminotransferase 21 U/L (0-33); Albumin Level 3.5 g/dL (3.5-5.2); Alkaline Phosphatase 43 U/L (35-105); Anion Gap 14.6 (5-19); Aspartate Amino Transferase 31 U/L (0-32); Blood Urea Nitrogen 12 mg/dL (6-20); Calcium 8.6 mg/dL (8.5-10.5); Carbon Dioxide 24 mmol/L (22-29); Chloride 108 mmol/L (98-107); Creatinine Clr Calc Pharmacy 136.1693; Globulin 2.3 g/dL (1.3-4.6); Glomerular Filtration Rate 127.2 mL/min (90-130); Glucose 106 mg/dL (65-115); Magnesium 1.9 mg/dL (1.7-2.3); Osmolality Calculated 296 mOsm/kg (285-295); Phosphorus 3.4 mg/dL (2.5-4.5); Potassium 3.6 mmol/L (3.5-5.1); Sodium 143 mmol/L (136-145); Total Bilirubin 0.3 mg/dL (0.15-1.2); Total Protein 5.8 g/dL (6.6-8.7)
[2024-09-30 06:17] LABS: Procalcitonin 0.05 ng/mL (0-0.5)
[2024-09-30 07:53] VITALS: BP 117/56; PULSE 54; RESP 18; TEMP 36.7; O2SAT 97
[2024-09-30] MEDS: aspirin 81 mg EC Tablet PO (08:50)
[2024-09-30] MEDS: fenofibrate 145 mg Tablet PO (08:50)
[2024-09-30] MEDS: lisinopril 20 mg Tablet PO (08:50)
[2024-09-30 11:07] VITALS: PULSE 67; O2SAT 95
--- NOTE | 2024-09-30 11:23 | PM.DCS ---
Discharge Providers Date of Admission: 09/29/24 14:59 Date of Discharge: September 30, 2024 Attending Provider at Admission: Paulino Woods MD Attending Provider at Discharge: Paulino Woods MD Primary Care Provider: Donna Bailey Diagnoses at Discharge Discharge Diagnosis (1) Obesity: Status: Acute (2) Abdominal pain: Status: Acute Reason for Visit Reason for Visit: post surgery complications Hospital Course Hospital Course Radha Aguilar is a 59 year old female patient With a past medical history of choledocholithiasis status post stenting to pancreatic duct,, biliary stent, with subsequent cholecystectomy, had a 11-day hospitalization at [facility], has been out of the hospital for about 3 weeks, who presents [facility] due to abdominal pain in the epigastrium, pain in the supraumbilical region, associate with nausea,. Patient denies any fevers, no chills, does report nausea, no vomiting, no diarrhea, her pain is primarily in the epigastrium, in the supraumbilical region, no drainage from her surgical site, Patient was admitted to [facility] for abdominal pain Abdominal pain CT/CT abdomen pelvis wo con [id number] IMPRESSION: 1. Multiple small hyperdensities within the gallbladder fossa could represent spilled stones or suture material from prior surgery. 2. There is both a biliary and pancreatic stent present. Charley pancreatic inflammatory change suggest pancreatitis involving the uncinate process. 3. Abnormal soft tissue density within the upper mesentery not present on prior exam likely related to prior surgery. Potentially this could represent inflammation or even a small amount of hemorrhage. 4. Multiple small as well as borderline enlarged peripancreatic and periportal lymph nodes likely inflammatory. 5. Diverticulosis. -Does have lipase elevation -No recent steroid use, no antibiotics in the last 3 weeks, no alcohol use Ultrasound liver - US/US abdomen limited [id number] IMPRESSION: Fatty liver -She was told that she had pancreatitis, gallstone pancreatitis when she was at [facility] -She was monitored as inpatient, no recurrent abdominal pain, no nausea, no vomiting, having bowel movement -Patient was discharged home -Follow-up with primary care provider -Follow-up with GI at [facility] -Advised to hydrate well Physical Exam Const: COMMON NORMALS: no acute distress and patient oriented x3 Resp: COMMON NORMALS: normal respiratory effort, No retractions, No use of accessory muscles and clear to auscultation bilaterally AUSCULTATION: clear to auscultation bilaterally Cardio: COMMON NORMALS: regular rate, regular rhythm, S1 normal heart sound present and S2 normal heart sound present RATE: regular rate RHYTHM: regular rhythm HEART SOUNDS: S1 normal heart sound present and S2 normal heart sound present GI: COMMON NORMALS: Normal to inspection, nondistended, normoactive bowel sounds present and non-tender Extremity: COMMON NORMALS: no pedal edema Neuro: COMMON NORMALS: patient oriented x3 Psych: COMMON NORMALS: mental status grossly normal Discharge Data Studies Completed and Pending Completed Studies During Hospitalization Category Date Time Status CT abdomen pelvis wo con [id number] Stat Cat Scan 09/29/24 10:01 Completed XR chest 1V portable [id number] Stat Exams 09/29/24 09:58 Completed US abdomen limited [id number] Routine Ultrasound 09/29/24 13:00 Completed Pending at discharge Category Date Time Status Blood Culture Routine Lab 09/29/24 13:12 Results C Reactive Protein AM LABS Lab 10/01/24 04:00 Ordered C Reactive Protein AM LABS Lab 10/02/24 04:00 Ordered Complete Blood Count w/Auto AM LABS Lab 10/01/24 04:00 Ordered Complete Blood Count w/Auto AM LABS Lab 10/02/24 04:00 Ordered Comprehensive Metabolic Panel AM LABS Lab 10/01/24 04:00 Ordered Comprehensive Metabolic Panel AM LABS Lab 10/02/24 04:00 Ordered Lipase AM LABS Lab 10/01/24 04:00 Ordered Lipase AM LABS Lab 10/02/24 04:00 Ordered Magnesium AM LABS Lab 10/01/24 04:00 Ordered Magnesium AM LABS Lab 10/02/24 04:00 Ordered Phosphorus AM LABS Lab 10/01/24 04:00 Ordered Phosphorus AM LABS Lab 10/02/24 04:00 Ordered Procalcitonin AM LABS Lab 10/01/24 04:00 Ordered Procalcitonin AM LABS Lab 10/02/24 04:00 Ordered Radiology Impressions Chest X-Ray 09/29/24 09:58 IMPRESSION: No acute findings. Abdomen/Pelvis CT 09/29/24 10:01 IMPRESSION: 1. Multiple small hyperdensities within the gallbladder fossa could represent spilled stones or suture material from prior surgery. 2. There is both a biliary and pancreatic stent present. Charley pancreatic inflammatory change suggest pancreatitis involving the uncinate process. 3. Abnormal soft tissue density within the upper mesentery not present on prior exam likely related to prior surgery. Potentially this could represent inflammation or even a small amount of hemorrhage. 4. Multiple small as well as borderline enlarged peripancreatic and periportal lymph nodes likely inflammatory. 5. Diverticulosis. ADDENDUM: 09/29/24 1123 Addendum: Discussed findings on the phone with referring physician. Exact etiology for mesenteric density is uncertain. Follow-up in 3 months may be of benefit to evaluate whether this resolves or remains present. Abdomen Ultrasound 09/29/24 13:00 IMPRESSION: Fatty liver Laboratory Results WBC 5.55 10^3/uL (3.29-11.43) 09/30/24 05:17 RBC 3.50 10^6/uL (3.85-5.65) L 09/30/24 05:17 Hgb 10.90 g/dL (11.27-16.99) L 09/30/24 05:17 Hct 34.9 % (36-47) L 09/30/24 05:17 MCV 99.7 fl (85-98) H 09/30/24 05:17 MCH 31.1 pg (27-33) 09/30/24 05:17 MCHC 31.2 g/dL (30-55) 09/30/24 05:17 RDW 12.0 % (12.1-15.1) L 09/30/24 05:17 Plt Count 173 10^3/cmm (157-399) D 09/30/24 05:17 MPV 10.7 fL (7.4-10.4) H 09/30/24 05:17 Neut % (Auto) 36.2 % 09/30/24 05:17 Lymph % (Auto) 46.3 % 09/30/24 05:17 [place] % (Auto) 8.5 % 09/30/24 05:17 Eos % (Auto) 7.9 % 09/30/24 05:17 Baso % (Auto) 0.9 % 09/30/24 05:17 Neut # (Auto) 2.01 10^3/uL (1.8-7.7) 09/30/24 05:17 Lymph # (Auto) 2.6 10^3/uL (0.8-4.8) 09/30/24 05:17 [place] # (Auto) 0.5 10^3/uL (0.2-0.9) 09/30/24 05:17 Eos # (Auto) 0.4 10^3/uL (0.0-0.8) 09/30/24 05:17 Baso # (Auto) 0.1 10^3/uL (0.0-0.1) 09/30/24 05:17 Nucleated RBC % (auto) 0 % 09/30/24 05:17 Nucleated RBCs # 0.0 /100WBC 09/30/24 05:17 PT 13.20 SECONDS (12.1-14.9) 09/29/24 10:04 INR 0.98 (0.8-1.2) 09/29/24 10:04 Sodium 143 mmol/L (136-145) 09/30/24 05:17 Potassium 3.6 mmol/L (3.5-5.1) 09/30/24 05:17 Chloride 108 mmol/L (98-107) H 09/30/24 05:17 Carbon Dioxide 24 mmol/L (22-29) 09/30/24 05:17 Anion Gap 14.6 (5-19) 09/30/24 05:17 BUN 12 mg/dL (6-20) 09/30/24 05:17 Creatinine 0.5 mg/dL (0.5-0.9) 09/30/24 05:17 GFR Calculation 127.2 mL/min (90-130) 09/30/24 05:17 Glucose 106 mg/dL (65-115) 09/30/24 05:17 Estimat Average Glucose 117 09/29/24 10:04 Hemoglobin A1c 5.7 % (4.0-6.0) 09/29/24 10:04 Calculated Osmolality 296 mOsm/kg (285-295) H 09/30/24 05:17 Lactic Acid 2.2 mmol/L (0.5-2.2) 09/29/24 10:04 Lactic Acid (Sepsis) 1.2 mmol/L (0.5-2.2) 09/29/24 14:53 Calcium 8.6 mg/dL (8.5-10.5) 09/30/24 05:17 Phosphorus 3.4 mg/dL (2.5-4.5) 09/30/24 05:17 Magnesium 1.9 mg/dL (1.7-2.3) 09/30/24 05:17 Total Bilirubin 0.3 mg/dL (0.15-1.2) 09/30/24 05:17 AST 31 U/L (0-32) 09/30/24 05:17 ALT 21 U/L (0-33) 09/30/24 05:17 Alkaline Phosphatase 43 U/L (35-105) 09/30/24 05:17 C-Reactive Protein 4.0 mg/L (0.0-4.9) 09/30/24 05:17 Total Protein 5.8 g/dL (6.6-8.7) L D 09/30/24 05:17 Albumin 3.5 g/dL (3.5-5.2) 09/30/24 05:17 Globulin 2.3 g/dL (1.3-4.6) 09/30/24 05:17 Triglycerides 222 mg/dL (0-150) H 09/29/24 10:04 Cholesterol 190 mg/dL (0-200) 09/29/24 10:04 LDL Cholesterol, Calc 115 mg/dL (50-129) 09/29/24 10:04 HDL Cholesterol 31 mg/dL (60-100) L 09/29/24 10:04 LDL/HDL Ratio 3.71 RATIO (0.00-3.22) H 09/29/24 10:04 Cholesterol/HDL Ratio 6.13 mg/dL (0.0-4.40) H 09/29/24 10:04 Lipase 60 U/L (13-60) 09/30/24 05:17 Procalcitonin 0.05 ng/mL (0-0.5) 09/30/24 05:17 TSH 5.94 uIU/mL (0.27-4.20) H 09/29/24 10:04 Urine Color Dark yellow (Yellow) A 09/29/24 10:19 Urine Appearance Cloudy (CLEAR) A 09/29/24 10:19 Urine pH 5.0 (5-7) 09/29/24 10:19 Ur Specific [place] 1.028 (1.005-1.030) 09/29/24 10:19 Urine Protein Trace (Negative) A 09/29/24 10:19 Urine Glucose (UA) Negative (Normal) 09/29/24 10:19 Urine Ketones Trace (Negative) 09/29/24 10:19 Urine Blood Negative (Negative) 09/29/24 10:19 Urine Nitrate Negative (Negative) 09/29/24 10:19 Urine Bilirubin 1+ (Negative) H 09/29/24 10:19 Urine Urobilinogen 1.0 mg/dL (Negative) 09/29/24 10:19 Ur Leukocyte Esterase Negative (Negative) 09/29/24 10:19 Urine RBC 21-50 /hpf (0-2) H 09/29/24 10:19 Urine WBC 6-10 /hpf (0-5) 09/29/24 10:19 Ur Squamous Epith Cells 21-50 /hpf (0-5) 09/29/24 10:19 Uric Acid Crystals >100 /hpf H 09/29/24 10:19 Amorphous Sediment Not Reportable 09/29/24 10:19 Urine Bacteria 1+ /hpf (NONE) H 09/29/24 10:19 Hyaline Casts 18.61 /lpf 09/29/24 10:19 Vitals Last Vital Signs Temp 98.1 F 09/30/24 07:53 Pulse 67 09/30/24 11:07 Resp 18 09/30/24 07:53 BP 117/56 09/30/24 07:53 Pulse Ox 95 09/30/24 11:07 O2 Del Method Room Air 09/30/24 11:07 Discharge Plan Discharge Patient Disposition: Home Condition: Stable Prescriptions: New cefdinir 300 mg capsule 300 mg PO BID 3 Days Qty: 6 0RF Continued multivitamin Tablet 1 tab PO DAILY fenofibrate nanocrystallized 145 mg tablet 145 mg PO DAILY aspirin [Adult Aspirin Regimen] 81 mg tablet,delayed release (DR/EC) 81 mg PO BID biotin 1 mg capsule 1 mg PO DAILY Stool Softener 50 mg capsule 100 mg PO BEDTIME lutein 20 mg capsule 20 mg PO DAILY Rx Instructions: give with meal/snack lisinopril 20 mg tablet 20 mg PO BID sennosides 8.6 mg Tablet 17.2 mg PO DAILY cod liver oil Capsule 1 cap PO BEDTIME Vitamin C 1,000 mg Tablet Extended Release 1,000 mg PO DAILY Probiotic 20 billion cell Capsule 20,000 mmu cells PO DAILY Rx Instructions: administer with a meal pyridoxine (vitamin B6) [Vitamin B-6] 250 mg Tablet 250 mg PO DAILY oxycodone 5 mg tablet 5 mg PO Q6H PRN (Reason: Pain) [id number] [id number] mg Tablet 1 tab PO DAILY naloxone 4 mg/actuation spray,non-aerosol 1 spray INTRANASAL Q2H PRN (Reason: overdose) Discharge Orders: Discharge Order (Routine); Ordered 09/30/24 Ordered By: Paulino Woods Referrals: Donna Bailey, PROGRAM PROPOSALS COORDINATOR [Primary Care Provider] - (We have notified your physician's clinic of the need for a follow-up appointment to be scheduled. If you have not heard from them within the next 2 business days, please call them directly. ) Discharge Diet: GI Soft Discharge Activity: Resume usual activity Patient Instructions: Cefdinir (By mouth), Pancreatitis (GEN), Laparoscopic Cholecystectomy (GEN), Opioid Safety Activity Restrictions/Additional Instructions: - Please hydrate well, drink plenty of electrolyte balanced fluids -Follow-up with your primary care provider next week to recheck liver function, -Follow-up with GI at [facility], for stent removal -If any recurrent abdominal pain go to emergency room Discharge Attestations Time Spent in Discharge Care*: greater than 30 min Quality Metrics Clinical Quality Measures [ No reported AMI, CVA or VTE this stay] Coding Level of Care Code 05985 Total time (in minutes) for Discharge: 45 Diagnoses Obesity E66.9 Abdominal pain R10.9
[2024-09-30 11:59] VITALS: BP 100/50; PULSE 71; RESP 17; TEMP 36.6; O2SAT 95
[2024-09-30 12:08] VITALS: BP 100/50; PULSE 71; RESP 17; TEMP 36.7; O2SAT 95
== END 2024-09-30 12:00 | disposition home or self-care (01) ==
LOC: ER 14:33 → MEDSURG 17:08
PROVIDERS: Admitting Provider Family Medicine; Emergency Provider Family Medicine; PCP Nurse Practitioner Family; Visit Provider Family Medicine
DX: R10.13 Epigastric pain (principal); R11.0 Nausea; Z98.890 Other specified postprocedural states; E66.9 Obesity, unspecified; Z68.42 Body mass index [BMI] 45.0-49.9, adult; Z79.82 Long term (current) use of aspirin; I10 Essential (primary) hypertension; K21.9 Gastro-esophageal reflux disease without esophagitis
CPT/HCPCS: 36415; 71045; 74176; 76705; 80053; 80061; 81001; 83036; 83605; 83690; 83735; 84100; 84145; 84443; 85025; 85610; 86140; 87040; 96361; 96372; 96374; 99285; G0378; J0696; J1650; J2270; J2405; J2470; J7030